=== PATIENT | female | born 1980 | race Caucasian/White ===

== ENCOUNTER 2017-07-01 14:28 | Inpatient (IN) | payer BC ==
[2017-07-01 15:27] VITALS: BMI 39.4
--- NOTE | 2017-07-01 16:35 | HP ---
Admission ROS [facility] Chief Complaint: I WANT TO GO TO REHAB Allergies/Adverse Reactions: Allergies Allergy/AdvReac Type Severity Reaction Status Date / Time penicillin G Allergy Severe Swelling Verified 07/01/17 16:02 History of Present Illness: 36 YEARS OLD FEMALE WITH LONG HISTORY OF COCAINE, NICOTINE DEPENDENCE, HAS ASTHMA AND CHRONIC SWELLING FEET X 5 YEARS, AND DEPRESSION IS ADMITTED TO REHAB Exam Limitations: No Limitations - Ebola screening Have you traveled outside of the country in the last 21 days: No Have you had contact with anyone from an Ebola affected area: No Have you been sick,other than usual withdrawal symptoms: No Do you have a fever: No - Review of Systems Constitutional: Weight Stable EENT: reports: No Symptoms Reported Respiratory: reports: No Symptoms reported Cardiac: reports: No Symptoms Reported GI: reports: No Symptoms Reported : reports: No Symptoms Reported Musculoskeletal: reports: Joint Swelling (ANKLES BILATERALLY) Integumentary: reports: No Symptoms Reported Neuro: reports: No Symptoms reported Endocrine: reports: No Symptoms Reported Hematology: reports: No Symptoms Reported Psychiatric: reports: Judgement Intact, Orientated x3, Anxious, Depressed Other Systems: Reviewed and Negative Patient History - Patient Medical History Hx Anemia: No Hx Asthma: Yes Hx Chronic Obstructive Pulmonary Disease (COPD): No Hx Cancer: No Hx Cardiac Disorders: No Hx Congestive Heart Failure: No Hx Hypertension: No Hx Hypercholesterolemia: No Hx Pacemaker: No HX Cerebrovascular Accident: No Hx Seizures: No Hx Dementia: No Hx Diabetes: No Hx Gastrointestinal Disorders: No Hx Liver Disease: No Hx Genitourinary Disorders: No Hx Sexually Transmitted Disorders: No Hx Renal Disease (ESRD): No Hx Thyroid Disease: No Hx Human Immunodeficiency Virus (HIV): No Hx Hepatitis C: No Hx Depression: Yes Hx Suicide Attempt: Yes (" LONG TIME AGO" ) Hx Bipolar Disorder: No Hx Schizophrenia: No - Patient Surgical History Past Surgical History: Yes Hx Section: Yes (2014) Anesthesia Reaction: No - PPD History Previous Implant?: Yes Documented Results: Negative w/o proof Implanted On Prior [facility] Admission?: No PPD to be Administered?: Yes - Reproductive History Patient is a Female of Child Bearing Age (11 -55 yrs old): Yes Last Menstrual Period: 06/20/17 Patient : No - Smoking Cessation Smoking history: Current every day smoker Have you smoked in the past 12 months: Yes Aproximately how many cigarettes per day: 5 Cigars Per Day: 0 Hx Chewing Tobacco Use: No Initiated information on smoking cessation: Yes 'Breaking Loose' booklet given: 07/01/17 - Substance & Tx. History Hx Alcohol Use: No Hx Substance Use: Yes Substance Use Type: Cocaine Hx Substance Use Treatment: No - Substances Abused Cocaine Route: Smoking Frequency: Daily Amount used: 500$+ Age of first use: 31 Date of Last Use: 06/30/17 Family Disease History - Family Disease History Family Disease History: Other: Father (NO CONTACT), Mother (NO CONTACT), Brother (NO CONTACT) Admission Physical Exam [facility] - Vital Signs Vital Signs: Vital Signs - 24 hr 07/01/17 15:24 Temperature 95.5 F L Pulse Rate 84 Respiratory 20 Rate Blood Pressure 122/64 - Physical General Appearance: Yes: No Apparent Distress, Appropriately Dressed, Obese HEENTM: Yes: Hearing grossly Normal, Normal ENT Inspection, Normocephalic, Normal Voice Respiratory: Yes: Chest Non-Tender, Lungs Clear, Normal Breath Sounds, No Respiratory Distress, No Accessory Muscle Use Neck: Yes: Supple, Trachea in good position Breast: Yes: Breasts Symetrical Cardiology: Yes: Regular Rhythm, Regular Rate, S1, S2 Abdominal: Yes: Normal Bowel Sounds, Non Tender, Soft Genitourinary: Yes: Within Normal Limits Back: Yes: Normal Inspection Musculoskeletal: Yes: full range of Motion, Gait Steady, Joint swelling (ANKLES BOTH) Extremities: Yes: Normal Range of Motion (LIMITED ON BOTH ANKLES DUE TO SWELLING "I WAS USING COCAINE"), Non-Tender, Swelling (FEET) Neurological: Yes: Fully Oriented, Alert, Motor Strength 5/5, Normal Response, Depressed Affect ("I DO NOT WANT TO USE ANYMORE") Integumentary: Yes: Warm Lymphatic: Yes: Within Normal Limits - Diagnostic (1) Cocaine dependence, uncomplicated Current Visit: Yes Status: Acute (2) Asthma Current Visit: Yes Status: Chronic Qualifiers: Asthma severity: mild intermittent Asthma complication type: with status asthmaticus Qualified Code(s): J45.22 - Mild intermittent asthma with status asthmaticus (3) Swelling of first metatarsophalangeal (MTP) joint of both feet Current Visit: Yes Status: Chronic Comment: X 5 YEARS (4) Nicotine dependence Current Visit: Yes Status: Acute Qualifiers: Nicotine product type: cigarettes Substance use status: in withdrawal Qualified Code(s): F17.213 - Nicotine dependence, cigarettes, with withdrawal (5) Depression Current Visit: Yes Status: Suspected Qualifiers: Depression Type: dysthymia Qualified Code(s): F34.1 - Dysthymic disorder Cleared for Admission [facility] - Detox or Rehab [facility] Level of Care: Observation Bed Detox Regimen/Protocol: Not Applicable Claeared for Rehab Admission: Yes [facility] Breath Alcohol Content Breath Alcohol Content: 0 Urine Pregancy Test - Result Urine Test Results: Negative- NO Line Present Urine Drug Screen - Results Drug Screen Negative: No Urine Drug Screen Results: ALLEN-Cocaine
[2017-07-01] MEDS ORDERED: ACETAMINOPHEN 325 MG TABLET (FP) PO PRN (16:38)
[2017-07-01] MEDS ORDERED: MAGNESIUM CITRATE 300 ML BOTTLE PO PRN (16:38)
[2017-07-01] MEDS ORDERED: diphenhydrAMINE HCL 50 MG CAPSULE PO PRN (16:38)
[2017-07-01] MEDS ORDERED: MENTHOL/PHENOL 1 EACH UD MM PRN (16:38)
[2017-07-01] MEDS ORDERED: P-EPHED 60MG/TRIPROLIDI 2.5MG TABLET PO PRN (16:38)
[2017-07-01] MEDS ORDERED: MAGNESIUM HYDROX 2400MG/30ML ORAL SUSPENSION 30 ML CUP PO PRN (16:38)
[2017-07-01] MEDS ORDERED: NICOTINE POLACRILEX 2 MG GUM BUC PRN (16:38)
[2017-07-01] MEDS ORDERED: LOPERAMIDE HCL 2 MG CAPSULE PO PRN (16:38)
[2017-07-01] MEDS ORDERED: IBUPROFEN 400 MG TABLET (FP) PO PRN (16:38)
[2017-07-01] MEDS ORDERED: guaiFENesin/D-METHORPHAN HB 10 ML UNIT-DOSE CUPS PO PRN (16:38)
[2017-07-01] MEDS ORDERED: ALBUTEROL SO4 2.5/IPRATROPIUM 0.5 INH SOL 3 ML VIAL.NEB. NEB PRN (16:39)
[2017-07-01] MEDS ORDERED: ALBUTEROL SO4 6.7 GM HFA INHALER IH PRN (16:39)
[2017-07-01] MEDS ORDERED: TUBERCULIN PPD 5 TU/0.1ML VIAL ID ONE (18:41)
[2017-07-01] MEDS: hydrOXYzine PAMOATE 50 MG CAPSULE (FP) PO PRN (21:32)
[2017-07-01] MEDS: THIAMINE HCL 100 MG TABLET (FP) PO SCH (21:32)
[2017-07-01 22:16] LABS: URINE APPEARANCE CLOUDY; URINE BILIRUBIN NEGATIVE (NEGATIVE); URINE BLOOD NEGATIVE (NEGATIVE); URINE COLOR YELLOW; URINE GLUCOSE (UA) NEGATIVE (NEGATIVE); URINE KETONE 1+ (NEGATIVE); URINE LEUK ESTERASE NEGATIVE (NEGATIVE); URINE NITRITE NEGATIVE (NEGATIVE); URINE PROTEIN NEGATIVE (NEGATIVE); URINE UROBILINOGEN NEGATIVE mg/dL (0.2-1.0)
[2017-07-02] MEDS: hydrOXYzine PAMOATE 50 MG CAPSULE (FP) PO PRN (06:40)
[2017-07-02] MEDS: PRENATAL VITAMINS W/ FOLIC ACID TABLET (FP) PO SCH (10:03)
[2017-07-02] MEDS: NICOTINE 14 MG/24 HOURS TOPICAL PATCH TD SCH (10:04)
[2017-07-02 10:11] LABS: MCH 20.8 pg (25.7-33.7); MEAN CELL VOLUME 69.5 fl (80-96); MEAN PLT VOLUME 9.2 fl (7.5-11.1); RDW 30.3 % (11.6-15.6); WHITE BLOOD COUNT 9.1 K/mm3 (4.0-10.0)
[2017-07-02 10:32] LABS: ALBUMIN 2.7 g/dl (3.4-5.0); ANION GAP 11 (8-16); BILIRUBIN,TOTAL 0.3 mg/dL (0.2-1.0); CALCIUM 8.4 mg/dL (8.5-10.1); CO2 25 mmol/L (21-32); CREATININE 0.8 mg/dL (0.55-1.02); GLUCOSE,RANDOM 91 mg/dL (74-106); SGOT/AST 23 U/L (15-37); SGPT/ALT 20 U/L (12-78)
[2017-07-02 10:35] LABS: ALK PHOS 76 U/L (45-117); TOT PROT 5.7 g/dl (6.4-8.2)
--- NOTE | 2017-07-02 10:50 | HP ---
Psychiatrist Admission - Data Date of interview: 07/02/17 Admission source: [facility] Identifying data: This is the first admission to [address] [place] [address] for this 36 years old H single female mother of 3 (children with the patient's mother).patient is homeless,supported by family. Medical History: Significant for BA. Psychiatric History: Patient reports depressed mood,anxiety,insomnia started about 2 years ago when she was admitted to [facility] due to above problems.Patient was dx with Depression ,placed on medications:Seroquel 100 mg po am and 400 mg po hs,Cymbalta 30 mg po bid,Topamax 200 mg po bid.No history of suicidal attempts,no more psychiatric hospitalizations reported.patient is willing to continue her medications as per plan. Physical/Sexual Abuse/Trauma History: denies Vital Signs: Vital Signs - 24 hr 07/01/17 07/02/17 07/02/17 15:24 00:30 03:30 Temperature 95.5 F L Pulse Rate 84 Respiratory 20 20 20 Rate Blood Pressure 122/64 07/02/17 06:55 Temperature 98.4 F Pulse Rate 78 Respiratory 18 Rate Blood Pressure 101/76 Allergies/Adverse Reactions: Allergies Allergy/AdvReac Type Severity Reaction Status Date / Time penicillin G Allergy Severe Swelling Verified 07/01/17 16:02 Date of last physical exam: 07/01/17 Concur with the findings of this exam: Yes - Substance Abuse/Tx History Hx Alcohol Use: No Hx Substance Use: Yes (reports using cocaine since 31 years old,$500 daily) Substance Use Type: Cocaine Hx Substance Use Treatment: Yes (longest abstinence time about 6-7 months) - Admission Criteria Previous failed treatment: Yes Poor recovery environment: Yes Comorbidities: Yes Lacks judgement: Yes Mental Status Exam - Mental Status Exam Alert and Oriented to: Time, Place, Person Cognitive Function: Grossly Intact Patient Appearance: Unkempt Mood: Sad, Anxious, Irritable Affect: Mood Congruent, Labile Patient Behavior: Restless, Cooperative Speech Pattern: Clear Voice Loudness: Normal Thought Process: Goal Oriented Thought Disorder: Not Present Hallucinations: Denies Suicidal Ideation: Denies Homicidal Ideation: Denies Insight/Judgement: Fair Sleep: Difficulty falling asleep Appetite: Good Muscle strength/Tone: Normal Gait/Station: Normal Psychiatric Findings - Problem List ([place] 1, 2,3) (1) Nicotine dependence Current Visit: Yes Status: Chronic Qualifiers: Nicotine product type: cigarettes Substance use status: in withdrawal Qualified Code(s): F17.213 - Nicotine dependence, cigarettes, with withdrawal (2) Asthma Current Visit: Yes Status: Chronic Qualifiers: Asthma severity: mild intermittent Asthma complication type: with status asthmaticus Qualified Code(s): J45.22 - Mild intermittent asthma with status asthmaticus (3) Cocaine dependence Current Visit: Yes Status: Chronic (4) Substance induced mood disorder Current Visit: Yes Status: Chronic - Initial Treatment Plan Initial Treatment Plan: Continue current medications as per plan. Will monitor progress.
[2017-07-02 11:06] LABS: ANISOCYTOSIS 4+; HYPOCHROMIA 4+; MACROCYTOSIS 1+; MICROCYTOSIS 3+; PLATELET ESTIMATE ADEQUATE (NORMAL); POIKILOCYTOSIS 3+; TEAR DROP CELLS 2+
[2017-07-02 11:07] LABS: OVALOCYTE 1+
[2017-07-02 11:31] LABS: PLATELET COUNT 195 K/MM3 (134-434)
[2017-07-02] MEDS ORDERED: POTASSIUM CHLORIDE TABS 20 MEQ TABLET.ER (FP) PO ONE (12:30)
--- NOTE | 2017-07-02 12:45 | EKG ---
Test Reason : Blood Pressure : / mmHG Vent. Rate : 071 BPM Atrial Rate : 071 BPM P-R Int : 236 ms QRS Dur : 090 ms QT Int : 408 ms P-R-T Axes : 047 076 067 degrees QTc Int : 443 ms SINUS RHYTHM WITH 1ST DEGREE A-V BLOCK OTHERWISE NORMAL ECG NO PREVIOUS ECGS AVAILABLE Confirmed by VIPIN MARTINEZ MD ([id number]) on 07/02/2017 12:44:42 PM Referred By: Confirmed By:VIPIN MARTINEZ MD
[2017-07-02] MEDS: DULoxetine HCL 60 MG CAPSULE.DR PO SCH ×2 (13:45→22:07)
[2017-07-02] MEDS: FERROUS SO4 325 MG TABLET (FP) PO SCH ×2 (13:45→17:30)
[2017-07-02] MEDS: QUEtiapine FUMARATE 100 MG TABLET (FP) PO SCH (13:45)
[2017-07-02] MEDS: TOPIRAMATE 100 MG TABLET PO SCH ×2 (13:46→22:06)
[2017-07-02] MEDS ORDERED: IBUPROFEN 600 MG TABLET (FP) PO PRN (14:47)
[2017-07-02] MEDS ORDERED: ONDANSETRON *ODT* 4 MG TABLET SL PRN (14:54)
[2017-07-02] MEDS ORDERED: ONDANSETRON *ODT* 4 MG TABLET SL ONE (15:15)
[2017-07-02] MEDS: CYCLOBENZAPRINE HCL 10 MG TABLET (FP) PO SCH ×2 (15:44→22:06)
[2017-07-02] MEDS: LIDOCAINE 5% TOPICAL PATCH TP SCH (15:45)
[2017-07-02] MEDS ORDERED: POTASSIUM CHLORIDE ORAL LIQUID 20 MEQ/15 ML PO ONE (16:00)
[2017-07-02] MEDS: POTASSIUM CHLORIDE ORAL LIQUID 20 MEQ/15 ML PO SCH (22:06)
[2017-07-02] MEDS: QUEtiapine FUMARATE 400 MG TABLET PO SCH (22:06)
[2017-07-02] MEDS: LIDOCAINE PATCH REMOVAL MC SCH (22:08)
[2017-07-02] MEDS: THIAMINE HCL 100 MG TABLET (FP) PO SCH (22:09)
[2017-07-03] MEDS: CYCLOBENZAPRINE HCL 10 MG TABLET (FP) PO SCH ×3 (06:13→21:19)
[2017-07-03] MEDS: FERROUS SO4 325 MG TABLET (FP) PO SCH ×3 (07:28→17:34)
[2017-07-03] MEDS: POTASSIUM CHLORIDE ORAL LIQUID 20 MEQ/15 ML PO SCH ×2 (10:02→21:20)
[2017-07-03] MEDS: PRENATAL VITAMINS W/ FOLIC ACID TABLET (FP) PO SCH (10:02)
[2017-07-03] MEDS: QUEtiapine FUMARATE 100 MG TABLET (FP) PO SCH (10:02)
[2017-07-03] MEDS: TOPIRAMATE 100 MG TABLET PO SCH ×2 (10:03→21:19)
[2017-07-03] MEDS: DULoxetine HCL 60 MG CAPSULE.DR PO SCH ×2 (10:08→21:19)
[2017-07-03] MEDS: NICOTINE 14 MG/24 HOURS TOPICAL PATCH TD SCH (10:09)
[2017-07-03] MEDS: LIDOCAINE 5% TOPICAL PATCH TP SCH (10:09)
[2017-07-03] MEDS: QUEtiapine FUMARATE 400 MG TABLET PO SCH (21:18)
[2017-07-03] MEDS: THIAMINE HCL 100 MG TABLET (FP) PO SCH (21:18)
[2017-07-03] MEDS: LIDOCAINE PATCH REMOVAL MC SCH (21:20)
[2017-07-04] MEDS: CYCLOBENZAPRINE HCL 10 MG TABLET (FP) PO SCH ×3 (07:05→21:35)
[2017-07-04] MEDS: FERROUS SO4 325 MG TABLET (FP) PO SCH ×3 (08:49→17:09)
[2017-07-04] MEDS: DULoxetine HCL 60 MG CAPSULE.DR PO SCH ×2 (10:10→21:35)
[2017-07-04 10:27] LABS: EOSINOPHIL 4.3 % (0-4.5); MCH 20.8 pg (25.7-33.7); MCHC 29.9 g/dl (32.0-36.0); MEAN CELL VOLUME 69.5 fl (80-96); MEAN PLT VOLUME 9.3 fl (7.5-11.1); NEUTROPHILS 59.4 % (42.8-82.8); PLATELET COUNT 224 K/MM3 (134-434); RDW 28.9 % (11.6-15.6); WHITE BLOOD COUNT 8.3 K/mm3 (4.0-10.0)
[2017-07-04] MEDS: POTASSIUM CHLORIDE ORAL LIQUID 20 MEQ/15 ML PO SCH ×2 (10:49→21:35)
[2017-07-04] MEDS: QUEtiapine FUMARATE 100 MG TABLET (FP) PO SCH (10:49)
[2017-07-04] MEDS: TOPIRAMATE 100 MG TABLET PO SCH ×2 (10:49→21:35)
[2017-07-04] MEDS: PRENATAL VITAMINS W/ FOLIC ACID TABLET (FP) PO SCH (10:49)
[2017-07-04] MEDS: LIDOCAINE 5% TOPICAL PATCH TP SCH (10:50)
[2017-07-04] MEDS: NICOTINE 14 MG/24 HOURS TOPICAL PATCH TD SCH (10:50)
[2017-07-04 10:52] LABS: ANION GAP 6 (8-16); CALCIUM 8.7 mg/dL (8.5-10.1); CO2 26 mmol/L (21-32); CREATININE 0.8 mg/dL (0.55-1.02); GLUCOSE,RANDOM 66 mg/dL (74-106)
[2017-07-04] MEDS: THIAMINE HCL 100 MG TABLET (FP) PO SCH (21:35)
[2017-07-04] MEDS: QUEtiapine FUMARATE 400 MG TABLET PO SCH (21:35)
[2017-07-04] MEDS: LIDOCAINE PATCH REMOVAL MC SCH (21:37)
[2017-07-05] MEDS: CYCLOBENZAPRINE HCL 10 MG TABLET (FP) PO SCH ×3 (06:21→21:01)
[2017-07-05] MEDS: FERROUS SO4 325 MG TABLET (FP) PO SCH ×3 (07:21→17:27)
[2017-07-05] MEDS: QUEtiapine FUMARATE 100 MG TABLET (FP) PO SCH (10:42)
[2017-07-05] MEDS: LIDOCAINE 5% TOPICAL PATCH TP SCH (10:42)
[2017-07-05] MEDS: DULoxetine HCL 60 MG CAPSULE.DR PO SCH ×2 (10:42→21:02)
[2017-07-05] MEDS: TOPIRAMATE 100 MG TABLET PO SCH ×2 (10:42→21:01)
[2017-07-05] MEDS: POTASSIUM CHLORIDE ORAL LIQUID 20 MEQ/15 ML PO SCH ×2 (10:42→21:01)
[2017-07-05] MEDS: PRENATAL VITAMINS W/ FOLIC ACID TABLET (FP) PO SCH (10:42)
[2017-07-05] MEDS: NICOTINE 14 MG/24 HOURS TOPICAL PATCH TD SCH (10:43)
[2017-07-05] MEDS: THIAMINE HCL 100 MG TABLET (FP) PO SCH (21:01)
[2017-07-05] MEDS: QUEtiapine FUMARATE 400 MG TABLET PO SCH (21:02)
[2017-07-05] MEDS: LIDOCAINE PATCH REMOVAL MC SCH (21:18)
[2017-07-06] MEDS: CYCLOBENZAPRINE HCL 10 MG TABLET (FP) PO SCH ×3 (06:16→21:07)
[2017-07-06] MEDS: FERROUS SO4 325 MG TABLET (FP) PO SCH ×4 (07:27→17:01)
[2017-07-06] MEDS: QUEtiapine FUMARATE 100 MG TABLET (FP) PO SCH (09:59)
[2017-07-06] MEDS: TOPIRAMATE 100 MG TABLET PO SCH ×2 (09:59→21:07)
[2017-07-06] MEDS: NICOTINE 14 MG/24 HOURS TOPICAL PATCH TD SCH (09:59)
[2017-07-06] MEDS: DULoxetine HCL 60 MG CAPSULE.DR PO SCH ×2 (09:59→21:07)
[2017-07-06] MEDS: POTASSIUM CHLORIDE ORAL LIQUID 20 MEQ/15 ML PO SCH ×2 (09:59→21:09)
[2017-07-06] MEDS: PRENATAL VITAMINS W/ FOLIC ACID TABLET (FP) PO SCH (09:59)
[2017-07-06] MEDS: LIDOCAINE 5% TOPICAL PATCH TP SCH (10:00)
[2017-07-06] MEDS ORDERED: SENNOSIDES 8.6MG TABLET (FP) PO ONE (19:28)
[2017-07-06] MEDS ORDERED: SENNOSIDES 8.6MG TABLET (FP) PO PRN (19:28)
[2017-07-06] MEDS: SENNOSIDES 8.6MG TABLET (FP) PO SCH (21:07)
[2017-07-06] MEDS: QUEtiapine FUMARATE 400 MG TABLET PO SCH (21:07)
[2017-07-06] MEDS: THIAMINE HCL 100 MG TABLET (FP) PO SCH (21:07)
[2017-07-06] MEDS: LIDOCAINE PATCH REMOVAL MC SCH (21:08)
[2017-07-07] MEDS: CYCLOBENZAPRINE HCL 10 MG TABLET (FP) PO SCH ×3 (06:33→21:14)
[2017-07-07] MEDS: FERROUS SO4 325 MG TABLET (FP) PO SCH ×3 (07:22→16:57)
[2017-07-07] MEDS: SENNOSIDES 8.6MG TABLET (FP) PO SCH ×2 (09:46→21:14)
[2017-07-07] MEDS: PRENATAL VITAMINS W/ FOLIC ACID TABLET (FP) PO SCH (09:46)
[2017-07-07] MEDS: POTASSIUM CHLORIDE ORAL LIQUID 20 MEQ/15 ML PO SCH ×2 (09:46→21:14)
[2017-07-07] MEDS: DULoxetine HCL 60 MG CAPSULE.DR PO SCH ×2 (09:46→21:14)
[2017-07-07] MEDS: QUEtiapine FUMARATE 100 MG TABLET (FP) PO SCH (09:46)
[2017-07-07] MEDS: LIDOCAINE 5% TOPICAL PATCH TP SCH (09:46)
[2017-07-07] MEDS: NICOTINE 14 MG/24 HOURS TOPICAL PATCH TD SCH (09:46)
[2017-07-07] MEDS: TOPIRAMATE 100 MG TABLET PO SCH ×2 (09:46→21:15)
[2017-07-07] MEDS: LIDOCAINE PATCH REMOVAL MC SCH (21:14)
[2017-07-07] MEDS: THIAMINE HCL 100 MG TABLET (FP) PO SCH (21:15)
[2017-07-07] MEDS: QUEtiapine FUMARATE 400 MG TABLET PO SCH (21:15)
[2017-07-08] MEDS: CYCLOBENZAPRINE HCL 10 MG TABLET (FP) PO SCH ×3 (06:24→21:10)
[2017-07-08] MEDS: FERROUS SO4 325 MG TABLET (FP) PO SCH ×2 (07:05→11:42)
[2017-07-08] MEDS: LIDOCAINE 5% TOPICAL PATCH TP SCH (11:21)
[2017-07-08] MEDS: DULoxetine HCL 60 MG CAPSULE.DR PO SCH ×2 (11:21→21:10)
[2017-07-08] MEDS: POTASSIUM CHLORIDE ORAL LIQUID 20 MEQ/15 ML PO SCH ×2 (11:22→21:09)
[2017-07-08] MEDS: SENNOSIDES 8.6MG TABLET (FP) PO SCH ×2 (11:22→21:09)
[2017-07-08] MEDS: NICOTINE 14 MG/24 HOURS TOPICAL PATCH TD SCH (11:22)
[2017-07-08] MEDS: QUEtiapine FUMARATE 100 MG TABLET (FP) PO SCH (11:22)
[2017-07-08] MEDS: PRENATAL VITAMINS W/ FOLIC ACID TABLET (FP) PO SCH (11:22)
[2017-07-08] MEDS: TOPIRAMATE 100 MG TABLET PO SCH ×2 (11:22→21:10)
[2017-07-08] MEDS ORDERED: DOCUSATE SODIUM 100 MG CAPSULE (FP) PO ONE (13:30)
[2017-07-08] MEDS ORDERED: LACTULOSE 20 GM/30 ML UDC (FOR ORAL USE ONLY) PO ONE (13:30)
[2017-07-08] MEDS: DOCUSATE SODIUM 100 MG CAPSULE (FP) PO SCH (21:09)
[2017-07-08] MEDS: THIAMINE HCL 100 MG TABLET (FP) PO SCH (21:09)
[2017-07-08] MEDS: QUEtiapine FUMARATE 400 MG TABLET PO SCH (21:09)
[2017-07-08] MEDS: LIDOCAINE PATCH REMOVAL MC SCH (21:12)
[2017-07-08 23:14] LABS: PH,URINE 5.5 (4.5-8); URINE APPEARANCE CLEAR; URINE BILIRUBIN NEGATIVE (NEGATIVE); URINE BLOOD NEGATIVE (NEGATIVE); URINE COLOR YELLOW; URINE GLUCOSE (UA) NEGATIVE (NEGATIVE); URINE KETONE NEGATIVE (NEGATIVE); URINE LEUK ESTERASE NEGATIVE (NEGATIVE); URINE NITRITE NEGATIVE (NEGATIVE); URINE PROTEIN NEGATIVE (NEGATIVE); URINE UROBILINOGEN 0.2 (0.2-1.0)
[2017-07-09] MEDS: CYCLOBENZAPRINE HCL 10 MG TABLET (FP) PO SCH ×3 (06:19→21:08)
[2017-07-09 09:49] LABS: BASOPHIL 0.8 % (0-2.0); EOSINOPHIL 6.1 % (0-4.5); MCH 20.8 pg (25.7-33.7); MCHC 30.1 g/dl (32.0-36.0); MEAN CELL VOLUME 68.9 fl (80-96); MEAN PLT VOLUME 9.4 fl (7.5-11.1); PLATELET COUNT 213 K/MM3 (134-434); RDW 28.7 % (11.6-15.6); WHITE BLOOD COUNT 7.5 K/mm3 (4.0-10.0)
[2017-07-09] MEDS: SENNOSIDES 8.6MG TABLET (FP) PO SCH ×2 (10:27→21:07)
[2017-07-09] MEDS: QUEtiapine FUMARATE 100 MG TABLET (FP) PO SCH (10:27)
[2017-07-09] MEDS: DULoxetine HCL 60 MG CAPSULE.DR PO SCH ×2 (10:27→21:07)
[2017-07-09] MEDS: TOPIRAMATE 100 MG TABLET PO SCH ×2 (10:27→21:07)
[2017-07-09] MEDS: PRENATAL VITAMINS W/ FOLIC ACID TABLET (FP) PO SCH (10:27)
[2017-07-09] MEDS: LIDOCAINE 5% TOPICAL PATCH TP SCH (10:28)
[2017-07-09] MEDS: NICOTINE 14 MG/24 HOURS TOPICAL PATCH TD SCH (10:28)
[2017-07-09 10:55] LABS: ALK PHOS 220 U/L (45-117); ANION GAP 10 (8-16); BILIRUBIN,TOTAL 0.5 mg/dL (0.2-1.0); CO2 24 mmol/L (21-32); CREATININE 0.9 mg/dL (0.55-1.02); GLUCOSE,RANDOM 70 mg/dL (74-106); SGOT/AST 121 U/L (15-37); SGPT/ALT 290 U/L (12-78); TOT PROT 7.1 g/dl (6.4-8.2)
--- NOTE | 2017-07-09 11:15 | PN ---
Psychiatric Progress Note Vital Signs: Vital Signs Period Temp Pulse Resp BP Sys/Maldonaod Pulse Ox Last 24 Hr 97.6 F 83 18-18 108/80 Date of Session: 07/09/17 Chief Complaint:: Dry mouth HPI: Patient addressing Cocaine Dependence comorbid with Nicotine Dependence and Substance-Induced Mood Disorder ROS: Asthma Current Medications: Active Medications Generic Name Dose Route Start Last Admin Trade Name Freq PRN Reason Stop Dose Admin Acetaminophen 650 mg 07/01/17 16:38 Tylenol - PO Q4H PRN PAIN Al Hydroxide/Mg Hydroxide 30 ml 07/01/17 16:38 Mylanta Oral Suspension - PO Q6H PRN DYSPEPSIA Albuterol Sulfate 2 puff 07/01/17 16:39 Ventolin Hfa Inhaler - IH Q4H PRN SHORT OF BREATH/WHEEZING Cyclobenzaprine HCl 10 mg 07/02/17 15:00 07/09/17 06:19 Flexeril - PO 10 mg TID CHARLEEN Administration Diphenhydramine HCl 50 mg 07/01/17 16:38 Benadryl - PO HSMR1 PRN INSOMNIA Docusate Sodium 300 mg 07/08/17 22:00 07/08/17 21:09 Colace - PO 300 mg HS CHARLENE Administration Duloxetine HCl 60 mg 07/02/17 12:30 07/09/17 10:27 Cymbalta - PO 60 mg BID CHARLENE Administration Eucalyptus/Menthol/Phenol/Sorbitol 1 each 07/01/17 16:38 Cepastat Lozenge - MM Q4H PRN SORE THROAT Guaifenesin 10 ml 07/01/17 16:38 Robitussin Dm - PO Q6H PRN COUGH Hydroxyzine Pamoate 50 mg 07/01/17 16:38 07/02/17 06:40 Vistaril - PO 50 mg Q4H PRN Administration AGITATION Ibuprofen 600 mg 07/02/17 14:47 07/06/17 14:56 Motrin - PO 600 mg Q6H PRN Administration SEVERE PAIN Lidocaine 1 patch 07/02/17 15:00 07/09/17 10:28 Lidoderm Patch - TP Not Given DAILY CHRALENE Loperamide HCl 4 mg 07/01/17 16:38 Imodium - PO Q6H PRN DIARRHEA Magnesium Citrate 300 ml 07/01/17 16:38 07/06/17 06:19 Citroma - PO 300 ml Q48H PRN Administration CONSTIPATION Magnesium Hydroxide 30 ml 07/01/17 16:38 07/05/17 21:17 Milk Of Magnesia - PO 30 ml DAILY PRN Administration CONSTIPATION Miscellaneous 1 each 07/02/17 22:00 07/08/17 21:12 Lidoderm Patch Removal MC 1 each DAILY@2200 CHARLENE Administration Nicotine 14 mg 07/02/17 10:00 07/09/17 10:28 Nicoderm Patch - TD Not Given DAILY CHARLENE Nicotine Polacrilex 2 mg 07/01/17 16:38 Nicorette Gum - BUC Q2H PRN NICOTINE REPLACEMENT RX Ondansetron HCl 8 mg 07/02/17 14:54 07/07/17 12:26 Zofran Odt - SL 8 mg Q8H PRN Administration NAUSEA AND/OR VOMITING Potassium Chloride 20 meq 07/02/17 22:00 07/08/17 21:09 Potassium Chloride Oral Liquid PO 20 meq BID CHARLENE Administration Multivit/Folic Acid/Iron 1 tab 07/02/17 10:00 07/09/17 10:27 Vitamins ([facility]) - PO 1 tab DAILY CHARLENE Administration Pseudoephedrine/Triprolidine 1 combo 07/01/17 16:38 Actifed - PO TID PRN NASAL CONGESTION Quetiapine Fumarate 400 mg 07/02/17 22:00 07/08/17 21:09 Seroquel - PO 400 mg HS CHARLENE Administration Senna 2 tab 07/06/17 19:28 Senna - PO HS PRN CONSTIPATION Senna 1 tab 07/06/17 22:00 07/09/17 10:27 Senna - PO 1 tab BID CHARLENE Administration Thiamine HCl 100 mg 07/01/17 22:00 07/08/17 21:09 Vitamin B1 - PO 100 mg HS CHARLENE Administration Topiramate 200 mg 07/02/17 12:30 07/09/17 10:27 Topamax - PO 200 mg BID CHARLENE Administration Medication(s) Change(s): Discontinue Seroquel 100 mg po daily Current Side Effect: No Lab tests ordered: Yes Lab tests reviewed: Yes Provider note:: Patient reports experiencing dry mouth. She said that she was told by the medical doctor that the problem is related to her psychiatric medications. She is currently on Seroquel 100 mg daily & 400 mg HS, Cymbalta 60 mg daily and Topiramate. She was explained by Seroquel is most likely responsible for her dry mouth. She told global technical writer that she wants to stop only the morning dose since she is helped by the night dose to sleep well Total face to face time:: 25 Mental Status Exam - Mental Status Exam Alert and Oriented to: Time, Place, Person Cognitive Function: Fair Patient Appearance: Well Groomed Mood: Hopeful, Euthymic Affect: Appropriate Patient Behavior: Cooperative Speech Pattern: Clear Voice Loudness: Normal Thought Process: Intact, Goal Oriented Thought Disorder: Not Present Hallucinations: Denies Suicidal Ideation: Denies Homicidal Ideation: Denies Insight/Judgement: Fair Sleep: Fair Appetite: Good Muscle strength/Tone: Normal Gait/Station: Normal Psychiatric Treatment Plan - Problem List (1) Cocaine dependence Current Visit: Yes (2) Nicotine dependence Current Visit: Yes Qualifiers: Nicotine product type: cigarettes Substance use status: in withdrawal Qualified Code(s): F17.213 - Nicotine dependence, cigarettes, with withdrawal (3) Substance induced mood disorder Current Visit: Yes (4) Asthma Current Visit: Yes Qualifiers: Asthma severity: mild intermittent Asthma complication type: with status asthmaticus Qualified Code(s): J45.22 - Mild intermittent asthma with status asthmaticus Initial treatment plan: 1) Discontinue Seroquel 100 mg po daily. 2) Monitor progress
[2017-07-09 12:41] LABS: ANISOCYTOSIS 3+; HYPOCHROMIA 3+; MACROCYTOSIS 1+; MICROCYTOSIS 1+; TEAR DROP CELLS FEW
[2017-07-09] MEDS: POTASSIUM CHLORIDE ORAL LIQUID 20 MEQ/15 ML PO SCH ×2 (13:53→21:09)
[2017-07-09] MEDS: THIAMINE HCL 100 MG TABLET (FP) PO SCH (21:06)
[2017-07-09] MEDS: QUEtiapine FUMARATE 400 MG TABLET PO SCH (21:07)
[2017-07-09] MEDS: DOCUSATE SODIUM 100 MG CAPSULE (FP) PO SCH (21:07)
[2017-07-09] MEDS: LIDOCAINE PATCH REMOVAL MC SCH (21:08)
[2017-07-10 04:34] LABS: FERRITIN 26.097 ng/ml (6.9-282.5)
[2017-07-10 06:06] LABS: SERUM IRON 17 ug/dL (27-159); TOTAL IRON BINDING CAPACITY 385 ug/dL (250-450); UIBC 368 ug/dL (131-425)
[2017-07-10] MEDS: CYCLOBENZAPRINE HCL 10 MG TABLET (FP) PO SCH ×3 (06:20→21:12)
[2017-07-10] MEDS: TOPIRAMATE 100 MG TABLET PO SCH ×2 (09:46→21:12)
[2017-07-10] MEDS: PRENATAL VITAMINS W/ FOLIC ACID TABLET (FP) PO SCH (09:47)
[2017-07-10] MEDS: SENNOSIDES 8.6MG TABLET (FP) PO SCH ×2 (09:47→21:12)
[2017-07-10] MEDS: DULoxetine HCL 60 MG CAPSULE.DR PO SCH ×2 (09:47→21:11)
[2017-07-10] MEDS: POTASSIUM CHLORIDE ORAL LIQUID 20 MEQ/15 ML PO SCH ×2 (09:48→21:15)
[2017-07-10] MEDS: NICOTINE 14 MG/24 HOURS TOPICAL PATCH TD SCH (09:48)
[2017-07-10] MEDS: LIDOCAINE 5% TOPICAL PATCH TP SCH (09:48)
[2017-07-10] MEDS: hydrOXYzine PAMOATE 50 MG CAPSULE (FP) PO PRN (17:38)
[2017-07-10] MEDS: QUEtiapine FUMARATE 400 MG TABLET PO SCH (21:11)
[2017-07-10] MEDS: DOCUSATE SODIUM 100 MG CAPSULE (FP) PO SCH (21:11)
[2017-07-10] MEDS: THIAMINE HCL 100 MG TABLET (FP) PO SCH (21:12)
[2017-07-10] MEDS: LIDOCAINE PATCH REMOVAL MC SCH (21:15)
[2017-07-11] MEDS: CYCLOBENZAPRINE HCL 10 MG TABLET (FP) PO SCH ×3 (06:03→21:23)
[2017-07-11] MEDS: PRENATAL VITAMINS W/ FOLIC ACID TABLET (FP) PO SCH (09:41)
[2017-07-11] MEDS: SENNOSIDES 8.6MG TABLET (FP) PO SCH ×2 (09:41→21:22)
[2017-07-11] MEDS: DULoxetine HCL 60 MG CAPSULE.DR PO SCH ×2 (09:41→21:23)
[2017-07-11] MEDS: TOPIRAMATE 100 MG TABLET PO SCH ×2 (09:41→21:23)
[2017-07-11] MEDS: POTASSIUM CHLORIDE ORAL LIQUID 20 MEQ/15 ML PO SCH ×2 (09:43→21:25)
[2017-07-11] MEDS: NICOTINE 14 MG/24 HOURS TOPICAL PATCH TD SCH (10:17)
[2017-07-11] MEDS: LIDOCAINE 5% TOPICAL PATCH TP SCH (10:17)
--- NOTE | 2017-07-11 12:40 | PN ---
[facility] Progress Note Note: Laboratory Last Values WBC 7.5 K/mm3 (4.0-10.0) 07/09/17 07:00 RBC 4.85 M/mm3 (3.60-5.2) 07/09/17 07:00 Hgb 10.1 GM/dL (10.7-15.3) L 07/09/17 07:00 Hct 33.4 % (32.4-45.2) 07/09/17 07:00 MCV 68.9 fl (80-96) L 07/09/17 07:00 MCH 20.8 pg (25.7-33.7) L 07/09/17 07:00 MCHC 30.1 g/dl (32.0-36.0) L 07/09/17 07:00 RDW 28.7 % (11.6-15.6) H 07/09/17 07:00 Plt Count 213 K/MM3 (134-434) 07/09/17 07:00 MPV 9.4 fl (7.5-11.1) 07/09/17 07:00 Neutrophils % 59.0 % (42.8-82.8) 07/09/17 07:00 Lymphocytes % 20.5 % (8-40) D 07/09/17 07:00 Monocytes % 13.6 % (3.8-10.2) H D 07/09/17 07:00 Eosinophils % 6.1 % (0-4.5) H 07/09/17 07:00 Basophils % 0.8 % (0-2.0) 07/09/17 07:00 Hypochromia 3+ 07/09/17 07:00 Platelet Estimate Adequate (NORMAL) 07/02/17 07:00 Poikilocytosis 3+ 07/02/17 07:00 Anisocytosis 3+ 07/09/17 07:00 Microcytosis 1+ 07/09/17 07:00 Macrocytosis 1+ 07/09/17 07:00 Tear Drop Cells Few 07/09/17 07:00 Ovalocytes 1+ 07/02/17 07:00 Fragmented RBCs 2+ 07/02/17 07:00 Sodium 141 mmol/L (136-145) 07/09/17 07:00 Potassium 4.1 mmol/L (3.5-5.1) 07/09/17 07:00 Chloride 107 mmol/L (98-107) 07/09/17 07:00 Carbon Dioxide 24 mmol/L (21-32) 07/09/17 07:00 Anion Gap 10 (8-16) 07/09/17 07:00 BUN 14 mg/dL (7-18) 07/09/17 07:00 Creatinine 0.9 mg/dL (0.55-1.02) 07/09/17 07:00 Creat Clearance w eGFR > 60 (>60) 07/09/17 07:00 Random Glucose 70 mg/dL (74-106) L 07/09/17 07:00 Calcium 9.0 mg/dL (8.5-10.1) 07/09/17 07:00 Iron 17 ug/dL (27-159) L 07/09/17 07:00 TIBC 385 ug/dL (250-450) 07/09/17 07:00 Iron Saturation 4 % (15-55) L 07/09/17 07:00 Ferritin 26.097 ng/ml (6.9-282.5) 07/09/17 07:00 Total Bilirubin 0.5 mg/dL (0.2-1.0) D 07/09/17 07:00 AST 121 U/L (15-37) H D 07/09/17 07:00 ALT 290 U/L (12-78) H D 07/09/17 07:00 Alkaline Phosphatase 220 U/L (45-117) H D 07/09/17 07:00 Total Protein 7.1 g/dl (6.4-8.2) D 07/09/17 07:00 Albumin 3.0 g/dl (3.4-5.0) L 07/09/17 07:00 Urine Color Yellow 07/08/17 17:52 Urine Appearance Clear 07/08/17 17:52 Urine pH 5.5 (4.5-8) 07/08/17 17:52 Ur Specific [place] 1.015 (1.005-1.025) 07/08/17 17:52 Urine Protein Negative (NEGATIVE) 07/08/17 17:52 Urine Glucose (UA) Negative (NEGATIVE) 07/08/17 17:52 Urine Ketones Negative (NEGATIVE) 07/08/17 17:52 Urine Blood Negative (NEGATIVE) 07/08/17 17:52 Urine Nitrite Negative (NEGATIVE) 07/08/17 17:52 Urine Bilirubin Negative (NEGATIVE) 07/08/17 17:52 Urine Urobilinogen 0.2 (0.2-1.0) 07/08/17 17:52 Ur Leukocyte Esterase Negative (NEGATIVE) 07/08/17 17:52 RPR Titer Nonreactive (NONREACTIVE) 07/02/17 07:00 Hepatitis C Antibody <0.1 s/co ratio (0.0-0.9) 07/01/17 07:00 d/c tylenol due to elvation of ast,alt d/c k k is 4.1 anemia ferrous sulfate 325 mgs po bid for iron deficiency anemia repeat cbc,cmp,inr on fri07/14/17
[2017-07-11] MEDS: MAG HYDROX/AL HYDROX/SIMETH 30 ML UNIT-DOSE CUP PO PRN (14:49)
[2017-07-11] MEDS: FERROUS SO4 325 MG TABLET (FP) PO SCH (16:52)
[2017-07-11] MEDS: DOCUSATE SODIUM 100 MG CAPSULE (FP) PO SCH (21:22)
[2017-07-11] MEDS: THIAMINE HCL 100 MG TABLET (FP) PO SCH (21:22)
[2017-07-11] MEDS: QUEtiapine FUMARATE 400 MG TABLET PO SCH (21:23)
[2017-07-11] MEDS: hydrOXYzine PAMOATE 50 MG CAPSULE (FP) PO PRN (21:23)
[2017-07-11] MEDS: LIDOCAINE PATCH REMOVAL MC SCH (21:24)
[2017-07-12] MEDS: MAG HYDROX/AL HYDROX/SIMETH 30 ML UNIT-DOSE CUP PO PRN (04:52)
[2017-07-12] MEDS: CYCLOBENZAPRINE HCL 10 MG TABLET (FP) PO SCH ×2 (06:19→14:06)
[2017-07-12] MEDS: FERROUS SO4 325 MG TABLET (FP) PO SCH (07:11)
[2017-07-12 07:22] VITALS: BP 129/86; PULSE 71; TEMP 98.6
[2017-07-12] MEDS: DULoxetine HCL 60 MG CAPSULE.DR PO SCH (09:36)
[2017-07-12] MEDS: TOPIRAMATE 100 MG TABLET PO SCH (09:36)
[2017-07-12] MEDS: PRENATAL VITAMINS W/ FOLIC ACID TABLET (FP) PO SCH (09:36)
[2017-07-12] MEDS: POTASSIUM CHLORIDE ORAL LIQUID 20 MEQ/15 ML PO SCH (09:37)
[2017-07-12] MEDS: NICOTINE 14 MG/24 HOURS TOPICAL PATCH TD SCH (09:37)
[2017-07-12] MEDS: LIDOCAINE 5% TOPICAL PATCH TP SCH (09:37)
[2017-07-12] MEDS: SENNOSIDES 8.6MG TABLET (FP) PO SCH (09:37)
--- NOTE | 2017-07-12 15:23 | PN ---
S Progress Note Note: Psychiatry Attending's note : RN Halie Jameson called. Patient eloped from unit. See staff's notes for details.
--- NOTE | 2017-07-12 17:19 | PN ---
[facility] Progress Note Note: Psychiatry Attending's note (personnel technician) : Received report that the patient has returned to [facility]. According to staff,patient requested to get back to [facility]. Case discussed with Can Dragger on duty,RN Joy Newton. Medical Lead recommended that the patient return to [facility] for re-assessment. Search and urine toxicology pending psychiatric re-evaluation. Medical Lead called [facility] to inquire about the patient : she left. Case discussed with Chief psychiatrist,Dr Zarco. Discussed via telephone with Dr Cardona,attending psychiatrist ([facility]). Ms Senior left without scripts.
== END 2017-07-12 15:17 | disposition left against medical advice (07) | DRG 770 ==
LOC: YASAS 14:28 → Y3E 16:23 → Y3W 19:12
PROVIDERS: ADMIT Psychiatry & Neurology Psychiatry; ATTEND Psychiatry & Neurology Psychiatry
PROC: HZ42ZZZ Group Counseling for Substance Abuse Treatment, Cognitive-Behavioral (ICD-10-PCS; principal; 2017-07-01)
DX: F17.213 Nicotine dependence, cigarettes, with withdrawal (principal); F19.24 Other psychoactive substance dependence with psychoactive substance-induced mood disorder; F34.1 Dysthymic disorder; D64.9 Anemia, unspecified; R74.0 Nonspecific elevation of levels of transaminase and lactic acid dehydrogenase [LDH]; J45.22 Mild intermittent asthma with status asthmaticus; R22.43 Localized swelling, mass and lump, lower limb, bilateral; E66.9 Obesity, unspecified; Z68.39 Body mass index [BMI] 39.0-39.9, adult; Z91.5 Personal history of self-harm; Z59.0 Homelessness
CPT/HCPCS: 36415; 80048; 80053; 81003; 82728; 83540; 83550; 85025; 85027; 86593; 86803; 93005; 93010

== ENCOUNTER 2018-07-10 12:38 | Inpatient (IN) | payer OTHER ==
[2018-07-10 14:52] VITALS: BMI 36.7
--- NOTE | 2018-07-10 16:19 | HP ---
Admission ROS [facility] Chief Complaint: Patient is here to be admitted to rehab for crack/cocaine. First use at 27 years old, using 20 "dime bags" a day, last use was yesterday morning. Denies use of any other substances other than tobacco, 1ppd. History of bipolar and depression. Seroquel 400mg BID, Celexa 30mg QD, Gabapentin 300mg QAM, 600mg QPM. Keppra 500mg BID for seizure disorder. Lost took any medication 2 months ago. Most recently at [facility] for 6 months. Undomiciled. [facility] for 9 months several years ago. No S/I, H/I 3 kids, with her mother. High school graduate. Allergies/Adverse Reactions: Allergies Allergy/AdvReac Type Severity Reaction Status Date / Time penicillin G Allergy Severe Swelling Verified 07/10/18 15:29 - Ebola screening Have you been sick,other than usual withdrawal symptoms: No Patient History - Patient Medical History Hx Anemia: No Hx Asthma: Yes (ON MDI) Hx Chronic Obstructive Pulmonary Disease (COPD): No Hx Cancer: No Hx Cardiac Disorders: No Hx Congestive Heart Failure: No Hx Hypertension: No Hx Hypercholesterolemia: No Hx Pacemaker: No HX Cerebrovascular Accident: No Hx Seizures: Yes (Supposed to be on Keppra) Hx Dementia: No Hx Diabetes: No Hx Gastrointestinal Disorders: No Hx Liver Disease: No Hx Genitourinary Disorders: No Hx Sexually Transmitted Disorders: No Hx Renal Disease (ESRD): No Hx Thyroid Disease: No Hx Human Immunodeficiency Virus (HIV): No Hx Hepatitis C: No Hx Depression: Yes Hx Suicide Attempt: No Hx Bipolar Disorder: No Hx Schizophrenia: No - Patient Surgical History Past Surgical History: Yes Hx Section: Yes (2014) Anesthesia Reaction: No - PPD History Date: 07/03/17 - Reproductive History Last Menstrual Period: 06/20/17 - Smoking Cessation Smoking history: Current every day smoker Have you smoked in the past 12 months: Yes Aproximately how many cigarettes per day: 5 Cigars Per Day: 0 Hx Chewing Tobacco Use: No Initiated information on smoking cessation: Yes 'Breaking Loose' booklet given: 07/10/18 - Substances Abused Crack Route: Smoking Frequency: Daily Amount used: $200 Age of first use: 27 Date of Last Use: 07/09/18 Family Disease History - Family Disease History Family Disease History: Other: Father (NO CONTACT), Mother (NO CONTACT), Brother (NO CONTACT) Admission Physical Exam [facility] - Vital Signs Vital Signs: Vital Signs - 24 hr 07/10/18 14:48 Temperature 97.2 F L Pulse Rate 84 Respiratory 18 Rate Blood Pressure 113/71 [facility] Breath Alcohol Content Breath Alcohol Content: 0 Urine Pregancy Test - Result Urine Test Results: Negative- NO Line Present Urine Drug Screen - Results Drug Screen Negative: No Urine Drug Screen Results: ALLEN-Cocaine, BZO-Benzodiazepines Inpatient Rehab Admission - Initial Determination Are CD services needed?: Yes Free of communicable disease: Yes Not in need of hospitalization: No - Rehab Admission Criteria Previous failed treatment: Yes Poor recovery environment: Yes Comorbidities: Yes Lacks judgement: Yes Patient is meeting Inpatient Rehab admission criteria:: Yes (Previous treatment at [facility] and [facility])
[2018-07-10] MEDS ORDERED: P-EPHED 60MG/TRIPROLIDI 2.5MG TABLET PO PRN (16:21)
[2018-07-10] MEDS ORDERED: MAGNESIUM CITRATE 300 ML BOTTLE PO PRN (16:21)
[2018-07-10] MEDS ORDERED: MENTHOL/PHENOL 1 EACH UD MM PRN (16:21)
[2018-07-10] MEDS ORDERED: MAGNESIUM HYDROX 2400MG/30ML ORAL SUSPENSION 30 ML CUP PO PRN (16:21)
[2018-07-10] MEDS ORDERED: guaiFENesin/D-METHORPHAN HB 10 ML UNIT-DOSE CUPS PO PRN (16:21)
[2018-07-10] MEDS ORDERED: LOPERAMIDE HCL 2 MG CAPSULE PO PRN (16:21)
[2018-07-10] MEDS ORDERED: ACETAMINOPHEN 325 MG TABLET (FP) PO PRN (16:21)
[2018-07-10] MEDS: QUEtiapine FUMARATE 400 MG TABLET PO SCH (21:43)
[2018-07-10] MEDS: THIAMINE HCL 100 MG TABLET (FP) PO SCH (21:43)
[2018-07-10] MEDS: GABAPENTIN 300 MG CAPSULE (FP) PO SCH (21:44)
[2018-07-10] MEDS ORDERED: MELATONIN 5 MG TABLETS PO PRN (22:00)
--- NOTE | 2018-07-11 00:56 | PN ---
[facility] Progress Note Note: As per RN, patient on keppra 500mg BID for SD but not ordered on admission. Same and PPD ordered
[2018-07-11] MEDS ORDERED: GABAPENTIN 300 MG CAPSULE (FP) PO ONE (08:00)
[2018-07-11] MEDS: PRENATAL VITAMINS W/ FOLIC ACID TABLET (FP) PO SCH (09:53)
[2018-07-11] MEDS: QUEtiapine FUMARATE 400 MG TABLET PO SCH ×2 (09:53→21:56)
[2018-07-11] MEDS: CITALOPRAM HYDROBROMIDE 20 MG TABLET (FP) PO SCH (09:53)
[2018-07-11] MEDS: levETIRAcetam 500 MG TABLET (FP) PO SCH ×2 (09:54→21:56)
[2018-07-11] MEDS: GABAPENTIN 300 MG CAPSULE (FP) PO SCH ×2 (09:55→21:56)
[2018-07-11 10:40] LABS: HEMATOCRIT 27.8 % (32.4-45.2); HEMOGLOBIN 8.4 GM/dL (10.7-15.3); MCH 20.3 pg (25.7-33.7); MCHC 30.1 g/dl (32.0-36.0); MEAN CELL VOLUME 67.3 fl (80-96); MEAN PLT VOLUME 10.1 fl (7.5-11.1); PLATELET COUNT 251 K/MM3 (134-434); RBC 4.13 M/mm3 (3.60-5.2); RDW 22.2 % (11.6-15.6); WHITE BLOOD COUNT 7.3 K/mm3 (4.0-10.0)
[2018-07-11 10:46] LABS: CHLORIDE 109 mmol/L (98-107); POTASSIUM 4.2 mmol/L (3.5-5.1); SODIUM 144 mmol/L (136-145)
[2018-07-11 11:01] LABS: ALBUMIN 2.8 g/dl (3.4-5.0); ALK PHOS 48 U/L (45-117); ANION GAP 10 MMOL/L (8-16); BILIRUBIN,TOTAL 0.2 mg/dL (0.2-1.0); BLOOD UREA NITROGEN 14 mg/dL (7-18); CALCIUM 8.4 mg/dL (8.5-10.1); CO2 25 mmol/L (21-32); CREATININE 0.6 mg/dL (0.55-1.02); GLUCOSE,RANDOM 75 mg/dL (74-106); SGOT/AST 14 U/L (15-37); SGPT/ALT 15 U/L (12-78); TOT PROT 5.9 g/dl (6.4-8.2)
--- NOTE | 2018-07-11 13:13 | PN ---
[facility] Progress Note Note: Vital Signs Temperature 97.2 F L 07/11/18 07:20 Pulse Rate 80 07/11/18 07:20 Respiratory Rate 18 07/11/18 07:20 Blood Pressure 109/71 07/11/18 07:20 O2 Sat by Pulse Oximetry (%) Laboratory Last Values WBC 7.3 K/mm3 (4.0-10.0) 07/11/18 08:00 RBC 4.13 M/mm3 (3.60-5.2) 07/11/18 08:00 Hgb 8.4 GM/dL (10.7-15.3) L 07/11/18 08:00 Hct 27.8 % (32.4-45.2) L D 07/11/18 08:00 MCV 67.3 fl (80-96) L 07/11/18 08:00 MCH 20.3 pg (25.7-33.7) L 07/11/18 08:00 MCHC 30.1 g/dl (32.0-36.0) L 07/11/18 08:00 RDW 22.2 % (11.6-15.6) H 07/11/18 08:00 Plt Count 251 K/MM3 (134-434) 07/11/18 08:00 MPV 10.1 fl (7.5-11.1) 07/11/18 08:00 Sodium 144 mmol/L (136-145) 07/11/18 08:00 Potassium 4.2 mmol/L (3.5-5.1) 07/11/18 08:00 Chloride 109 mmol/L (98-107) H 07/11/18 08:00 Carbon Dioxide 25 mmol/L (21-32) 07/11/18 08:00 Anion Gap 10 MMOL/L (8-16) 07/11/18 08:00 BUN 14 mg/dL (7-18) 07/11/18 08:00 Creatinine 0.6 mg/dL (0.55-1.02) 07/11/18 08:00 Creat Clearance w eGFR > 60 (>60) 07/11/18 08:00 Random Glucose 75 mg/dL (74-106) 07/11/18 08:00 Calcium 8.4 mg/dL (8.5-10.1) L 07/11/18 08:00 Total Bilirubin 0.2 mg/dL (0.2-1.0) 07/11/18 08:00 AST 14 U/L (15-37) L 07/11/18 08:00 ALT 15 U/L (12-78) 07/11/18 08:00 Alkaline Phosphatase 48 U/L (45-117) 07/11/18 08:00 Total Protein 5.9 g/dl (6.4-8.2) L 07/11/18 08:00 Albumin 2.8 g/dl (3.4-5.0) L 07/11/18 08:00 RPR Titer Nonreactive (NONREACTIVE) 07/11/18 08:00 Labs reviewed repeat CBC continue to monitor
[2018-07-11] MEDS: THIAMINE HCL 100 MG TABLET (FP) PO SCH (21:56)
[2018-07-11] MEDS ORDERED: TUBERCULIN PPD 5 TU/0.1ML VIAL ID ONE (22:12)
[2018-07-12] MEDS: CITALOPRAM HYDROBROMIDE 20 MG TABLET (FP) PO SCH (10:06)
[2018-07-12] MEDS: QUEtiapine FUMARATE 400 MG TABLET PO SCH ×2 (10:07→22:52)
[2018-07-12] MEDS: levETIRAcetam 500 MG TABLET (FP) PO SCH ×2 (10:07→22:52)
[2018-07-12] MEDS: GABAPENTIN 300 MG CAPSULE (FP) PO SCH ×2 (10:08→22:53)
[2018-07-12] MEDS: PRENATAL VITAMINS W/ FOLIC ACID TABLET (FP) PO SCH (10:08)
[2018-07-12] MEDS: IBUPROFEN 400 MG TABLET (FP) PO PRN (22:53)
[2018-07-12] MEDS: THIAMINE HCL 100 MG TABLET (FP) PO SCH (22:54)
--- NOTE | 2018-07-13 08:45 | HP ---
Psychiatrist Admission - Data Date of interview: 07/13/18 Admission source: [facility] Identifying data: This is [facility] for this 37 years old single H female mother of 3 (children reside with the patient's mother).She is undomiciled,supported by family. Medical History: Significant for BA. Psychiatric History: Patient reports depression,mood instability,anxeity, insomnia related to drug use more than 4-5 years.Patient reports one psychiatric hospitalization about 2 years ago to [facility], [place] to address above problems.She was dx with Depressive disorder and started on Seroquel 100 mg po am and 400 mg po hs.Cymbalta 30 mg po daily and Topamax 200 mg po bid.Reports no suicidal attempts.Poor compliance with treastment.Patient has no OPD care at present.She obtains psychiatropic medications from local ER: Seroquel 400 mg po bid ,Neurontin 600 mg po hs and 300 mg po daily. Physical/Sexual Abuse/Trauma History: denies Vital Signs: Vital Signs - 24 hr 07/13/18 07/13/18 03:30 07:05 Temperature 97.1 F L Pulse Rate 67 Respiratory 18 18 Rate Blood Pressure 100/69 Allergies/Adverse Reactions: Allergies Allergy/AdvReac Type Severity Reaction Status Date / Time penicillin G Allergy Severe Swelling Verified 07/10/18 15:29 Date of last physical exam: 07/10/18 Concur with the findings of this exam: Yes - Substance Abuse/Tx History Hx Alcohol Use: Yes Hx Substance Use: Yes (cocaine since 27 yo,spending $500 when has money) Substance Use Type: Cocaine Hx Substance Use Treatment: Yes (left [facility] in Jul 2017) Mental Status Exam - Mental Status Exam Alert and Oriented to: Time, Place, Person Cognitive Function: Grossly Intact Patient Appearance: Unkempt Mood: Sad, Irritable Affect: Mood Congruent, Labile Patient Behavior: Cooperative Speech Pattern: Clear Voice Loudness: Normal Thought Process: Goal Oriented Thought Disorder: Not Present Hallucinations: Denies Suicidal Ideation: Denies Homicidal Ideation: Denies Insight/Judgement: Fair Sleep: Fair Appetite: Good Muscle strength/Tone: Normal Gait/Station: Normal Psychiatric Findings - Problem List ([place] 1, 2,3) (1) Asthma Current Visit: Yes Status: Chronic Qualifiers: Asthma severity: mild intermittent Asthma complication type: with status asthmaticus (2) Cocaine dependence Current Visit: Yes Status: Chronic (3) Nicotine dependence Current Visit: Yes Status: Chronic Qualifiers: Nicotine product type: cigarettes Substance use status: in withdrawal Qualified Code(s): F17.213 - Nicotine dependence, cigarettes, with withdrawal (4) Substance induced mood disorder Current Visit: Yes Status: Chronic - Initial Treatment Plan Initial Treatment Plan: Seroquel 400 mg po bid,Neurontin 600 mg po daily and 300 mg po daily,Celexa 30 mg po daily. Will monitor progress.
[2018-07-13] MEDS: CITALOPRAM HYDROBROMIDE 20 MG TABLET (FP) PO SCH (10:21)
[2018-07-13] MEDS: levETIRAcetam 500 MG TABLET (FP) PO SCH ×2 (10:21→22:00)
[2018-07-13] MEDS: GABAPENTIN 300 MG CAPSULE (FP) PO SCH ×2 (10:21→22:00)
[2018-07-13] MEDS: QUEtiapine FUMARATE 400 MG TABLET PO SCH ×2 (10:21→22:00)
[2018-07-13] MEDS: PRENATAL VITAMINS W/ FOLIC ACID TABLET (FP) PO SCH (10:21)
--- NOTE | 2018-07-13 11:26 | EKG ---
Test Reason : Blood Pressure : / mmHG Vent. Rate : 085 BPM Atrial Rate : 085 BPM P-R Int : 150 ms QRS Dur : 080 ms QT Int : 390 ms P-R-T Axes : 062 074 056 degrees QTc Int : 464 ms NORMAL SINUS RHYTHM NORMAL ECG WHEN COMPARED WITH ECG OF 01-JUL-2017 22:27, NO SIGNIFICANT CHANGE WAS FOUND Confirmed by PEBBLES PINEDA MD ([id number]) on 07/13/2018 11:25:38 AM Referred By: Confirmed By:PEBBLES PINEDA MD
[2018-07-13] MEDS: IBUPROFEN 400 MG TABLET (FP) PO PRN (13:42)
--- NOTE | 2018-07-13 13:46 | PN ---
S Progress Note Note: Vital Signs Temperature 97.1 F L 07/13/18 07:05 Pulse Rate 67 07/13/18 07:05 Respiratory Rate 18 07/13/18 07:05 Blood Pressure 100/69 07/13/18 07:05 O2 Sat by Pulse Oximetry (%) Patient refuse repeat Labs and Keppra levels.
[2018-07-13 14:53] LABS: URINE APPEARANCE SLCLOUDY; URINE BILIRUBIN NEGATIVE (<2.0 mg/dL); URINE COLOR STRAW; URINE GLUCOSE (UA) NEGATIVE (NEGATIVE); URINE KETONE NEGATIVE (NEGATIVE); URINE LEUK ESTERASE NEGATIVE (NEGATIVE); URINE NITRITE NEGATIVE (NEGATIVE); URINE PROTEIN NEGATIVE (NEGATIVE); URINE UROBILINOGEN NEGATIVE mg/dL (0.2-1.0)
[2018-07-13 14:59] LABS: EPI CELLS RARE /HPF (FEW); URINE BACTERIA RARE /hpf (NONE SEEN)
[2018-07-13] MEDS: THIAMINE HCL 100 MG TABLET (FP) PO SCH (21:59)
[2018-07-14] MEDS: CITALOPRAM HYDROBROMIDE 20 MG TABLET (FP) PO SCH (10:09)
[2018-07-14] MEDS: PRENATAL VITAMINS W/ FOLIC ACID TABLET (FP) PO SCH (10:09)
[2018-07-14] MEDS: levETIRAcetam 500 MG TABLET (FP) PO SCH ×2 (10:09→21:16)
[2018-07-14] MEDS: GABAPENTIN 300 MG CAPSULE (FP) PO SCH ×2 (10:10→21:15)
[2018-07-14] MEDS: QUEtiapine FUMARATE 400 MG TABLET PO SCH ×2 (10:11→21:16)
[2018-07-14] MEDS: IBUPROFEN 400 MG TABLET (FP) PO PRN (11:52)
--- NOTE | 2018-07-14 13:28 | PN ---
[facility] Progress Note Note: c/o feeling anxious, no other complaints Vital Signs Temperature 98.1 F 07/14/18 07:02 Pulse Rate 78 07/14/18 07:02 Respiratory Rate 20 07/14/18 07:02 Blood Pressure 91/65 07/14/18 07:02 O2 Sat by Pulse Oximetry (%) Laboratory Last Values WBC 7.3 K/mm3 (4.0-10.0) 07/11/18 08:00 RBC 4.13 M/mm3 (3.60-5.2) 07/11/18 08:00 Hgb 8.4 GM/dL (10.7-15.3) L 07/11/18 08:00 Hct 27.8 % (32.4-45.2) L D 07/11/18 08:00 MCV 67.3 fl (80-96) L 07/11/18 08:00 MCH 20.3 pg (25.7-33.7) L 07/11/18 08:00 MCHC 30.1 g/dl (32.0-36.0) L 07/11/18 08:00 RDW 22.2 % (11.6-15.6) H 07/11/18 08:00 Plt Count 251 K/MM3 (134-434) 07/11/18 08:00 MPV 10.1 fl (7.5-11.1) 07/11/18 08:00 Sodium 144 mmol/L (136-145) 07/11/18 08:00 Potassium 4.2 mmol/L (3.5-5.1) 07/11/18 08:00 Chloride 109 mmol/L (98-107) H 07/11/18 08:00 Carbon Dioxide 25 mmol/L (21-32) 07/11/18 08:00 Anion Gap 10 MMOL/L (8-16) 07/11/18 08:00 BUN 14 mg/dL (7-18) 07/11/18 08:00 Creatinine 0.6 mg/dL (0.55-1.02) 07/11/18 08:00 Creat Clearance w eGFR > 60 (>60) 07/11/18 08:00 Random Glucose 75 mg/dL (74-106) 07/11/18 08:00 Calcium 8.4 mg/dL (8.5-10.1) L 07/11/18 08:00 Total Bilirubin 0.2 mg/dL (0.2-1.0) 07/11/18 08:00 AST 14 U/L (15-37) L 07/11/18 08:00 ALT 15 U/L (12-78) 07/11/18 08:00 Alkaline Phosphatase 48 U/L (45-117) 07/11/18 08:00 Total Protein 5.9 g/dl (6.4-8.2) L 07/11/18 08:00 Albumin 2.8 g/dl (3.4-5.0) L 07/11/18 08:00 Urine Color Straw 07/13/18 13:00 Urine Appearance Slcloudy 07/13/18 13:00 Urine pH 6.0 (5.0-8.0) 07/13/18 13:00 Ur Specific [place] 1.004 (1.001-1.035) 07/13/18 13:00 Urine Protein Negative (NEGATIVE) 07/13/18 13:00 Urine Glucose (UA) Negative (NEGATIVE) 07/13/18 13:00 Urine Ketones Negative (NEGATIVE) 07/13/18 13:00 Urine Blood 1+ (NEGATIVE) H 07/13/18 13:00 Urine Nitrite Negative (NEGATIVE) 07/13/18 13:00 Urine Bilirubin Negative (<2.0 mg/dL) 07/13/18 13:00 Urine Urobilinogen Negative mg/dL (0.2-1.0) 07/13/18 13:00 Ur Leukocyte Esterase Negative (NEGATIVE) 07/13/18 13:00 Urine WBC (Auto) None /hpf (3-5) 07/13/18 13:00 Urine RBC (Auto) 1 /hpf (0-3) 07/13/18 13:00 Ur Epithelial Cells Rare /HPF (FEW) 07/13/18 13:00 Urine Bacteria Rare /hpf (NONE SEEN) 07/13/18 13:00 RPR Titer Nonreactive (NONREACTIVE) 07/11/18 08:00 Patient stable vistaril PRN increase po fluids continue to monitor
[2018-07-14] MEDS: THIAMINE HCL 100 MG TABLET (FP) PO SCH (21:17)
[2018-07-14] MEDS: hydrOXYzine PAMOATE 50 MG CAPSULE (FP) PO PRN (22:02)
[2018-07-15] MEDS: IBUPROFEN 400 MG TABLET (FP) PO PRN (01:19)
[2018-07-15] MEDS: hydrOXYzine PAMOATE 50 MG CAPSULE (FP) PO PRN ×2 (09:43→21:19)
[2018-07-15] MEDS: levETIRAcetam 500 MG TABLET (FP) PO SCH ×2 (09:45→21:19)
[2018-07-15] MEDS: PRENATAL VITAMINS W/ FOLIC ACID TABLET (FP) PO SCH (09:45)
[2018-07-15] MEDS: QUEtiapine FUMARATE 400 MG TABLET PO SCH ×2 (09:45→21:19)
[2018-07-15] MEDS: GABAPENTIN 300 MG CAPSULE (FP) PO SCH ×2 (09:45→21:19)
[2018-07-15] MEDS ORDERED: CITALOPRAM HYDROBROMIDE 10 MG TABLET (FP) ONE (10:13)
[2018-07-15] MEDS ORDERED: CITALOPRAM HYDROBROMIDE 20 MG TABLET (FP) ONE (10:13)
[2018-07-15] MEDS: CITALOPRAM HYDROBROMIDE PO SCH (10:24)
[2018-07-15] MEDS: THIAMINE HCL 100 MG TABLET (FP) PO SCH (21:20)
[2018-07-16] MEDS ORDERED: CITALOPRAM HYDROBROMIDE 10 MG TABLET (FP) ONE (08:24)
[2018-07-16] MEDS ORDERED: CITALOPRAM HYDROBROMIDE 20 MG TABLET (FP) ONE (08:24)
[2018-07-16] MEDS: CITALOPRAM HYDROBROMIDE PO SCH (09:05)
[2018-07-16] MEDS: QUEtiapine FUMARATE 400 MG TABLET PO SCH ×2 (09:06→21:28)
[2018-07-16] MEDS: GABAPENTIN 300 MG CAPSULE (FP) PO SCH ×2 (09:06→21:26)
[2018-07-16] MEDS: PRENATAL VITAMINS W/ FOLIC ACID TABLET (FP) PO SCH (09:06)
[2018-07-16] MEDS: levETIRAcetam 500 MG TABLET (FP) PO SCH ×2 (09:06→21:26)
[2018-07-16] MEDS: IBUPROFEN 400 MG TABLET (FP) PO PRN (10:46)
[2018-07-16] MEDS: hydrOXYzine PAMOATE 50 MG CAPSULE (FP) PO PRN (10:46)
--- NOTE | 2018-07-16 13:22 | PN ---
[facility] Progress Note Note: Vital Signs Temperature 98.1 F 07/16/18 07:07 Pulse Rate 64 07/16/18 07:07 Respiratory Rate 16 07/16/18 07:07 Blood Pressure 101/69 07/16/18 07:07 O2 Sat by Pulse Oximetry (%) Laboratory Last Values WBC 7.3 K/mm3 (4.0-10.0) 07/11/18 08:00 RBC 4.13 M/mm3 (3.60-5.2) 07/11/18 08:00 Hgb 8.4 GM/dL (10.7-15.3) L 07/11/18 08:00 Hct 27.8 % (32.4-45.2) L D 07/11/18 08:00 MCV 67.3 fl (80-96) L 07/11/18 08:00 MCH 20.3 pg (25.7-33.7) L 07/11/18 08:00 MCHC 30.1 g/dl (32.0-36.0) L 07/11/18 08:00 RDW 22.2 % (11.6-15.6) H 07/11/18 08:00 Plt Count 251 K/MM3 (134-434) 07/11/18 08:00 MPV 10.1 fl (7.5-11.1) 07/11/18 08:00 Sodium 144 mmol/L (136-145) 07/11/18 08:00 Potassium 4.2 mmol/L (3.5-5.1) 07/11/18 08:00 Chloride 109 mmol/L (98-107) H 07/11/18 08:00 Carbon Dioxide 25 mmol/L (21-32) 07/11/18 08:00 Anion Gap 10 MMOL/L (8-16) 07/11/18 08:00 BUN 14 mg/dL (7-18) 07/11/18 08:00 Creatinine 0.6 mg/dL (0.55-1.02) 07/11/18 08:00 Creat Clearance w eGFR > 60 (>60) 07/11/18 08:00 Random Glucose 75 mg/dL (74-106) 07/11/18 08:00 Calcium 8.4 mg/dL (8.5-10.1) L 07/11/18 08:00 Total Bilirubin 0.2 mg/dL (0.2-1.0) 07/11/18 08:00 AST 14 U/L (15-37) L 07/11/18 08:00 ALT 15 U/L (12-78) 07/11/18 08:00 Alkaline Phosphatase 48 U/L (45-117) 07/11/18 08:00 Total Protein 5.9 g/dl (6.4-8.2) L 07/11/18 08:00 Albumin 2.8 g/dl (3.4-5.0) L 07/11/18 08:00 Urine Color Straw 07/13/18 13:00 Urine Appearance Slcloudy 07/13/18 13:00 Urine pH 6.0 (5.0-8.0) 07/13/18 13:00 Ur Specific [place] 1.004 (1.001-1.035) 07/13/18 13:00 Urine Protein Negative (NEGATIVE) 07/13/18 13:00 Urine Glucose (UA) Negative (NEGATIVE) 07/13/18 13:00 Urine Ketones Negative (NEGATIVE) 07/13/18 13:00 Urine Blood 1+ (NEGATIVE) H 07/13/18 13:00 Urine Nitrite Negative (NEGATIVE) 07/13/18 13:00 Urine Bilirubin Negative (<2.0 mg/dL) 07/13/18 13:00 Urine Urobilinogen Negative mg/dL (0.2-1.0) 07/13/18 13:00 Ur Leukocyte Esterase Negative (NEGATIVE) 07/13/18 13:00 Urine WBC (Auto) None /hpf (3-5) 07/13/18 13:00 Urine RBC (Auto) 1 /hpf (0-3) 07/13/18 13:00 Ur Epithelial Cells Rare /HPF (FEW) 07/13/18 13:00 Urine Bacteria Rare /hpf (NONE SEEN) 07/13/18 13:00 Levetiracetam None detected MCG/ML (10.0-40.0) 07/12/18 09:30 RPR Titer Nonreactive (NONREACTIVE) 07/11/18 08:00 Patient stable on keppra 500 mg BID repeat keppra levels continue to monitor
[2018-07-16] MEDS: MAG HYDROX/AL HYDROX/SIMETH 30 ML UNIT-DOSE CUP PO PRN (17:42)
--- NOTE | 2018-07-16 18:14 | PN ---
[facility] Progress Note Note: Vital Signs Temperature 98.1 F 07/16/18 07:07 Pulse Rate 64 07/16/18 07:07 Respiratory Rate 16 07/16/18 07:07 Blood Pressure 101/69 07/16/18 07:07 O2 Sat by Pulse Oximetry (%) c/o of midpigastric pain protonix 20 mg symptoms don't improve will send patient to [facility] continue to monitor
[2018-07-16] MEDS: PANTOPRAZOLE 20 MG TABLET (FP) PO SCH (21:27)
[2018-07-16] MEDS: THIAMINE HCL 100 MG TABLET (FP) PO SCH (21:28)
[2018-07-17] MEDS ORDERED: CITALOPRAM HYDROBROMIDE 10 MG TABLET (FP) ONE (09:54)
[2018-07-17] MEDS ORDERED: CITALOPRAM HYDROBROMIDE 20 MG TABLET (FP) ONE (09:55)
[2018-07-17] MEDS: PANTOPRAZOLE 20 MG TABLET (FP) PO SCH (10:08)
[2018-07-17] MEDS: levETIRAcetam 500 MG TABLET (FP) PO SCH ×2 (10:08→21:28)
[2018-07-17] MEDS: GABAPENTIN 300 MG CAPSULE (FP) PO SCH ×2 (10:08→21:28)
[2018-07-17] MEDS: CITALOPRAM HYDROBROMIDE PO SCH (10:08)
[2018-07-17] MEDS: QUEtiapine FUMARATE 400 MG TABLET PO SCH ×2 (10:09→21:28)
[2018-07-17] MEDS: PRENATAL VITAMINS W/ FOLIC ACID TABLET (FP) PO SCH (10:09)
[2018-07-17] MEDS: MAG HYDROX/AL HYDROX/SIMETH 30 ML UNIT-DOSE CUP PO PRN ×2 (13:55→22:06)
[2018-07-17] MEDS: hydrOXYzine PAMOATE 50 MG CAPSULE (FP) PO PRN (19:29)
[2018-07-17] MEDS: THIAMINE HCL 100 MG TABLET (FP) PO SCH (21:29)
[2018-07-18] MEDS ORDERED: CITALOPRAM HYDROBROMIDE 10 MG TABLET (FP) ONE (08:55)
[2018-07-18] MEDS ORDERED: CITALOPRAM HYDROBROMIDE 20 MG TABLET (FP) ONE (08:56)
[2018-07-18] MEDS: PANTOPRAZOLE 20 MG TABLET (FP) PO SCH (09:31)
[2018-07-18] MEDS: CITALOPRAM HYDROBROMIDE PO SCH (09:31)
[2018-07-18] MEDS: GABAPENTIN 300 MG CAPSULE (FP) PO SCH ×2 (09:32→21:45)
[2018-07-18] MEDS: QUEtiapine FUMARATE 400 MG TABLET PO SCH ×2 (09:32→21:45)
[2018-07-18] MEDS: levETIRAcetam 500 MG TABLET (FP) PO SCH ×2 (09:32→21:45)
[2018-07-18] MEDS: PRENATAL VITAMINS W/ FOLIC ACID TABLET (FP) PO SCH (09:33)
[2018-07-18] MEDS: hydrOXYzine PAMOATE 50 MG CAPSULE (FP) PO PRN ×2 (11:52→18:43)
[2018-07-18] MEDS: MAG HYDROX/AL HYDROX/SIMETH 30 ML UNIT-DOSE CUP PO PRN (11:52)
[2018-07-18] MEDS ORDERED: PT OWN MED DRAWER 7, Y5N ONE ×2 (21:11→22:33)
[2018-07-18] MEDS: THIAMINE HCL 100 MG TABLET (FP) PO SCH (21:46)
[2018-07-19] MEDS ORDERED: CITALOPRAM HYDROBROMIDE 10 MG TABLET (FP) ONE (08:29)
[2018-07-19] MEDS ORDERED: CITALOPRAM HYDROBROMIDE 20 MG TABLET (FP) ONE (08:29)
[2018-07-19] MEDS: QUEtiapine FUMARATE 400 MG TABLET PO SCH ×2 (10:04→21:37)
[2018-07-19] MEDS: CITALOPRAM HYDROBROMIDE PO SCH (10:04)
[2018-07-19] MEDS: levETIRAcetam 500 MG TABLET (FP) PO SCH ×2 (10:04→21:37)
[2018-07-19] MEDS: PRENATAL VITAMINS W/ FOLIC ACID TABLET (FP) PO SCH (10:04)
[2018-07-19] MEDS: GABAPENTIN 300 MG CAPSULE (FP) PO SCH ×2 (10:04→21:37)
[2018-07-19] MEDS: PANTOPRAZOLE 20 MG TABLET (FP) PO SCH (10:04)
[2018-07-19] MEDS: THIAMINE HCL 100 MG TABLET (FP) PO SCH (21:36)
[2018-07-20] MEDS ORDERED: CITALOPRAM HYDROBROMIDE 20 MG TABLET (FP) ONE (08:16)
[2018-07-20] MEDS ORDERED: CITALOPRAM HYDROBROMIDE 10 MG TABLET (FP) ONE (08:16)
[2018-07-20] MEDS: CITALOPRAM HYDROBROMIDE PO SCH (09:49)
[2018-07-20] MEDS: QUEtiapine FUMARATE 400 MG TABLET PO SCH ×2 (09:50→21:15)
[2018-07-20] MEDS: PANTOPRAZOLE 20 MG TABLET (FP) PO SCH (09:50)
[2018-07-20] MEDS: GABAPENTIN 300 MG CAPSULE (FP) PO SCH ×2 (09:51→21:15)
[2018-07-20] MEDS: PRENATAL VITAMINS W/ FOLIC ACID TABLET (FP) PO SCH (09:51)
[2018-07-20] MEDS: levETIRAcetam 500 MG TABLET (FP) PO SCH ×2 (09:51→21:15)
--- NOTE | 2018-07-20 13:28 | PN ---
S Progress Note Note: Vital Signs Temperature 98.0 F 07/20/18 06:46 Pulse Rate 70 07/20/18 06:46 Respiratory Rate 18 07/20/18 06:46 Blood Pressure 102/67 07/20/18 06:46 O2 Sat by Pulse Oximetry (%) Keppra levels pending c/o vertigo antivert PRN increase po fluids continue to monitor
[2018-07-20] MEDS: MECLIZINE HCL 12.5 MG TABLET PO SCH ×2 (19:00→23:19)
[2018-07-20] MEDS: THIAMINE HCL 100 MG TABLET (FP) PO SCH (21:15)
[2018-07-20] MEDS: hydrOXYzine PAMOATE 50 MG CAPSULE (FP) PO PRN (21:16)
[2018-07-20] MEDS: IBUPROFEN 400 MG TABLET (FP) PO PRN (21:17)
[2018-07-21] MEDS: MECLIZINE HCL 12.5 MG TABLET PO SCH ×4 (06:18→23:34)
[2018-07-21] MEDS ORDERED: CITALOPRAM HYDROBROMIDE 20 MG TABLET (FP) ONE (08:42)
[2018-07-21] MEDS ORDERED: CITALOPRAM HYDROBROMIDE 10 MG TABLET (FP) ONE (08:42)
[2018-07-21] MEDS: GABAPENTIN 300 MG CAPSULE (FP) PO SCH ×2 (09:37→21:18)
[2018-07-21] MEDS: CITALOPRAM HYDROBROMIDE PO SCH (09:37)
[2018-07-21] MEDS: PANTOPRAZOLE 20 MG TABLET (FP) PO SCH (09:38)
[2018-07-21] MEDS: levETIRAcetam 500 MG TABLET (FP) PO SCH (09:38)
[2018-07-21] MEDS: PRENATAL VITAMINS W/ FOLIC ACID TABLET (FP) PO SCH (09:38)
[2018-07-21] MEDS: QUEtiapine FUMARATE 400 MG TABLET PO SCH ×2 (09:38→21:18)
--- NOTE | 2018-07-21 10:47 | PN ---
[facility] Progress Note Note: received nurse called keppra level is 7 reported seizure since 2014 taking keppra on and off average seizure episode 2- 3 / month, last seizure 07/09/18 treated at [facility], repeat keppra level increase keppra to 1500 mg per day
[2018-07-21] MEDS ORDERED: levETIRAcetam 500 MG TABLET (FP) PO SCH (11:15)
[2018-07-21] MEDS ORDERED: levETIRAcetam 500 MG TABLET (FP) PO ONE ×2 (12:01→19:24)
[2018-07-21] MEDS ORDERED: levETIRAcetam 250 MG TABLET (FP) PO ONE ×2 (12:01→19:24)
--- NOTE | 2018-07-21 14:32 | PN ---
[facility] Progress Note Note: PATIENT SEEN FOR REVIEW OF LABS. PATIENT HAS KNOWN HX OF ANEMIA. PATIENT STATES SHE DOES NOT WANT VITAMIN AND WAS TREATED IN PAST WITH IRON SUPPLEMENT. DENIES MEDICAL COMPLAINTS TODAY. WILL ORDER FESO4 325MG BID AND D/C V ITAMIN. CONTINUE TO MONITOR CLINICALLY. Vital Signs Temperature 98.1 F 07/21/18 06:26 Pulse Rate 88 07/21/18 06:26 Respiratory Rate 18 07/21/18 06:26 Blood Pressure 118/57 07/21/18 06:26 O2 Sat by Pulse Oximetry (%) Laboratory Tests 07/11/18 07/11/18 07/11/18 08:00 08:00 08:00 WBC 7.3 RBC 4.13 Hgb 8.4 L Hct 27.8 L D MCV 67.3 L MCH 20.3 L MCHC 30.1 L RDW 22.2 H Plt Count 251 MPV 10.1 Sodium 144 Potassium 4.2 Chloride 109 H Carbon Dioxide 25 Anion Gap 10 BUN 14 Creatinine 0.6 Creat Clearance w eGFR > 60 Random Glucose 75 Calcium 8.4 L Total Bilirubin 0.2 AST 14 L ALT 15 Alkaline Phosphatase 48 Total Protein 5.9 L Albumin 2.8 L Urine Color Urine Appearance Urine pH Ur Specific [place] Urine Protein Urine Glucose (UA) Urine Ketones Urine Blood Urine Nitrite Urine Bilirubin Urine Urobilinogen Ur Leukocyte Esterase Urine WBC (Auto) Urine RBC (Auto) Ur Epithelial Cells Urine Bacteria Levetiracetam RPR Titer Nonreactive 07/12/18 07/13/18 07/17/18 09:30 13:00 08:30 WBC RBC Hgb Hct MCV MCH MCHC RDW Plt Count MPV Sodium Potassium Chloride Carbon Dioxide Anion Gap BUN Creatinine Creat Clearance w eGFR Random Glucose Calcium Total Bilirubin AST ALT Alkaline Phosphatase Total Protein Albumin Urine Color Straw Urine Appearance Slcloudy Urine pH 6.0 Ur Specific [place] 1.004 Urine Protein Negative Urine Glucose (UA) Negative Urine Ketones Negative Urine Blood 1+ H Urine Nitrite Negative Urine Bilirubin Negative Urine Urobilinogen Negative Ur Leukocyte Esterase Negative Urine WBC (Auto) None Urine RBC (Auto) 1 Ur Epithelial Cells Rare Urine Bacteria Rare Levetiracetam None detected 7.0 L RPR Titer
[2018-07-21] MEDS: FERROUS SO4 325 MG TABLET (FP) PO SCH (21:15)
[2018-07-21] MEDS: THIAMINE HCL 100 MG TABLET (FP) PO SCH (21:17)
[2018-07-22] MEDS: MECLIZINE HCL 12.5 MG TABLET PO SCH ×4 (07:00→23:24)
[2018-07-22] MEDS ORDERED: CITALOPRAM HYDROBROMIDE 10 MG TABLET (FP) ONE (08:35)
[2018-07-22] MEDS ORDERED: levETIRAcetam 250 MG TABLET (FP) PO ONE ×2 (08:36→18:22)
[2018-07-22] MEDS ORDERED: CITALOPRAM HYDROBROMIDE 20 MG TABLET (FP) ONE (08:36)
[2018-07-22] MEDS ORDERED: levETIRAcetam 500 MG TABLET (FP) PO ONE ×2 (08:36→18:21)
[2018-07-22] MEDS: QUEtiapine FUMARATE 400 MG TABLET PO SCH ×2 (09:42→21:05)
[2018-07-22] MEDS: CITALOPRAM HYDROBROMIDE PO SCH (09:43)
[2018-07-22] MEDS: PANTOPRAZOLE 20 MG TABLET (FP) PO SCH (09:43)
[2018-07-22] MEDS: FERROUS SO4 325 MG TABLET (FP) PO SCH ×2 (09:43→21:04)
[2018-07-22] MEDS: GABAPENTIN 300 MG CAPSULE (FP) PO SCH ×2 (09:43→21:05)
[2018-07-22] MEDS: hydrOXYzine PAMOATE 50 MG CAPSULE (FP) PO PRN (19:03)
[2018-07-22] MEDS: THIAMINE HCL 100 MG TABLET (FP) PO SCH (21:07)
[2018-07-23] MEDS: MECLIZINE HCL 12.5 MG TABLET PO SCH ×2 (06:49→11:59)
[2018-07-23] MEDS ORDERED: CITALOPRAM HYDROBROMIDE 10 MG TABLET (FP) ONE (08:22)
[2018-07-23] MEDS ORDERED: CITALOPRAM HYDROBROMIDE 20 MG TABLET (FP) ONE (08:23)
[2018-07-23] MEDS ORDERED: levETIRAcetam 500 MG TABLET (FP) PO ONE ×2 (08:23→20:12)
[2018-07-23] MEDS ORDERED: levETIRAcetam 250 MG TABLET (FP) PO ONE ×2 (08:23→20:12)
[2018-07-23] MEDS: CITALOPRAM HYDROBROMIDE PO SCH (09:47)
[2018-07-23] MEDS: PANTOPRAZOLE 20 MG TABLET (FP) PO SCH (09:48)
[2018-07-23] MEDS: FERROUS SO4 325 MG TABLET (FP) PO SCH ×2 (09:48→21:19)
[2018-07-23] MEDS: QUEtiapine FUMARATE 400 MG TABLET PO SCH ×2 (09:48→21:21)
[2018-07-23] MEDS: GABAPENTIN 300 MG CAPSULE (FP) PO SCH ×2 (09:49→21:19)
[2018-07-23] MEDS ORDERED: PT OWN MED DRAWER 7, Y5N ONE (10:09)
[2018-07-23] MEDS ORDERED: MECLIZINE HCL 12.5 MG TABLET PO PRN (14:23)
[2018-07-23] MEDS: hydrOXYzine PAMOATE 50 MG CAPSULE (FP) PO PRN (19:22)
[2018-07-23] MEDS: THIAMINE HCL 100 MG TABLET (FP) PO SCH (21:20)
[2018-07-24] MEDS ORDERED: levETIRAcetam 250 MG TABLET (FP) PO ONE ×2 (08:26→19:42)
[2018-07-24] MEDS ORDERED: CITALOPRAM HYDROBROMIDE 10 MG TABLET (FP) ONE (08:26)
[2018-07-24] MEDS ORDERED: CITALOPRAM HYDROBROMIDE 20 MG TABLET (FP) ONE (08:26)
[2018-07-24] MEDS ORDERED: levETIRAcetam 500 MG TABLET (FP) PO ONE ×2 (08:26→19:42)
[2018-07-24] MEDS: CITALOPRAM HYDROBROMIDE PO SCH (10:14)
[2018-07-24] MEDS: FERROUS SO4 325 MG TABLET (FP) PO SCH ×2 (10:14→21:17)
[2018-07-24] MEDS: GABAPENTIN 300 MG CAPSULE (FP) PO SCH ×2 (10:14→21:17)
[2018-07-24] MEDS: PANTOPRAZOLE 20 MG TABLET (FP) PO SCH (10:14)
[2018-07-24] MEDS: QUEtiapine FUMARATE 400 MG TABLET PO SCH ×2 (10:15→21:18)
[2018-07-24] MEDS: MAG HYDROX/AL HYDROX/SIMETH 30 ML UNIT-DOSE CUP PO PRN (12:44)
[2018-07-24] MEDS: THIAMINE HCL 100 MG TABLET (FP) PO SCH (21:17)
[2018-07-25] MEDS ORDERED: CITALOPRAM HYDROBROMIDE 20 MG TABLET (FP) ONE (08:56)
[2018-07-25] MEDS ORDERED: CITALOPRAM HYDROBROMIDE 10 MG TABLET (FP) ONE (08:56)
[2018-07-25] MEDS ORDERED: levETIRAcetam 500 MG TABLET (FP) PO ONE ×2 (08:56→20:29)
[2018-07-25] MEDS ORDERED: levETIRAcetam 250 MG TABLET (FP) PO ONE ×2 (08:56→20:30)
[2018-07-25] MEDS: CITALOPRAM HYDROBROMIDE PO SCH (10:07)
[2018-07-25] MEDS: PANTOPRAZOLE 20 MG TABLET (FP) PO SCH (10:08)
[2018-07-25] MEDS: FERROUS SO4 325 MG TABLET (FP) PO SCH ×2 (10:08→21:01)
[2018-07-25] MEDS: GABAPENTIN 300 MG CAPSULE (FP) PO SCH ×2 (10:08→21:01)
[2018-07-25] MEDS: QUEtiapine FUMARATE 400 MG TABLET PO SCH ×2 (10:09→21:01)
[2018-07-25] MEDS ORDERED: PT OWN MED DRAWER 7, Y5N ONE (20:30)
[2018-07-25] MEDS: THIAMINE HCL 100 MG TABLET (FP) PO SCH (21:01)
[2018-07-26] MEDS ORDERED: CITALOPRAM HYDROBROMIDE 10 MG TABLET (FP) ONE (08:33)
[2018-07-26] MEDS ORDERED: levETIRAcetam 250 MG TABLET (FP) PO ONE ×2 (08:34→20:42)
[2018-07-26] MEDS ORDERED: levETIRAcetam 500 MG TABLET (FP) PO ONE ×2 (08:34→20:42)
[2018-07-26] MEDS ORDERED: CITALOPRAM HYDROBROMIDE 20 MG TABLET (FP) ONE (08:34)
[2018-07-26] MEDS: PANTOPRAZOLE 20 MG TABLET (FP) PO SCH (10:53)
[2018-07-26] MEDS: CITALOPRAM HYDROBROMIDE PO SCH (10:53)
[2018-07-26] MEDS: FERROUS SO4 325 MG TABLET (FP) PO SCH ×2 (10:53→21:09)
[2018-07-26] MEDS: GABAPENTIN 300 MG CAPSULE (FP) PO SCH ×2 (10:54→21:08)
[2018-07-26] MEDS: QUEtiapine FUMARATE 400 MG TABLET PO SCH ×2 (10:55→21:09)
[2018-07-26] MEDS: THIAMINE HCL 100 MG TABLET (FP) PO SCH (21:09)
[2018-07-27] MEDS: MAG HYDROX/AL HYDROX/SIMETH 30 ML UNIT-DOSE CUP PO PRN (01:27)
[2018-07-27 07:21] VITALS: BP 109/76; PULSE 81; TEMP 97.3
[2018-07-27] MEDS ORDERED: CITALOPRAM HYDROBROMIDE 10 MG TABLET (FP) ONE (08:36)
[2018-07-27] MEDS ORDERED: levETIRAcetam 500 MG TABLET (FP) PO ONE (08:36)
[2018-07-27] MEDS ORDERED: CITALOPRAM HYDROBROMIDE 20 MG TABLET (FP) ONE (08:36)
[2018-07-27] MEDS ORDERED: levETIRAcetam 250 MG TABLET (FP) PO ONE (08:37)
--- NOTE | 2018-07-27 10:39 | PN ---
[facility] Progress Note Note: Patient decided to leave today (early discharge).According to the medical staff patient became loud,escalating,threatening staff.Security was involved, escorting her to the lobby.Scripts for 30 days provided.patient will continue to address her issues on outpatient basis.See staff notes for details.
== END 2018-07-27 10:03 | disposition home or self-care (01) | DRG 772 ==
LOC: YASAS 12:38 → Y3E 15:35
PROVIDERS: ADMIT Psychiatry & Neurology Psychiatry; ATTEND Psychiatry & Neurology Psychiatry
PROC: HZ42ZZZ Group Counseling for Substance Abuse Treatment, Cognitive-Behavioral (ICD-10-PCS; principal; 2018-07-10)
DX: F14.20 Cocaine dependence, uncomplicated (principal); F17.213 Nicotine dependence, cigarettes, with withdrawal; F19.24 Other psychoactive substance dependence with psychoactive substance-induced mood disorder; F32.9 Major depressive disorder, single episode, unspecified; J45.22 Mild intermittent asthma with status asthmaticus; G40.909 Epilepsy, unspecified, not intractable, without status epilepticus; D50.9 Iron deficiency anemia, unspecified; Z88.0 Allergy status to penicillin; Z59.0 Homelessness
CPT/HCPCS: 36415; 80053; 81003; 81015; 85027; 86593; 93005; 93010

== ENCOUNTER 2018-10-01 08:34 | Inpatient (IN) | payer OTHER ==
[2018-10-01 09:21] VITALS: BMI 40.1
--- NOTE | 2018-10-01 10:00 | HP ---
CIWA Score Nausea/Vomitin Muscle Tremors: 2 Anxiety: 2 Agitation: 2 Paroxysmal Sweats: 1-Minimal Palms Moist Orientation: 0-Oriented Tacttile Disturbances: 1-Very Mild Itch/Numbness Auditory Disturbances: 1-Very Mild Visual Disturbances: 0-None Headache: 2-Mild CIWA-Ar Total Score: 13 - Admission Criteria OASAS Guidelines: Admission for Medically Managed Detox: Requires at least one of the followin. CIWA greater than 12 2. Seizures within the past 24 hours 3. Delirium tremens within the past 24 hours 4. Hallucinations within the past 24 hours 5. Acute intervention needed for co occurring medical disorder 6. Acute intervention needed for co occurring psychiatric disorder 7. Severe withdrawal that cannot be handled at a lower level of care (continued vomiting, continued diarrhea, abnormal vital signs) requiring intravenous medication and/or fluids 8. Admission ROS S - HPI Chief Complaint: i need help to stop drinking alcohol and cocaine Allergies/Adverse Reactions: Allergies Allergy/AdvReac Type Severity Reaction Status Date / Time Fish Containing Products Allergy Severe Verified 10/01/18 10:04 penicillin G Allergy Severe Swelling Verified 07/10/18 15:29 History of Present Illness: this 37 years old female with alcohol and cocaine dependence,seeking detox,also heroin abused,seeking detox, last treatment rehab at [facility] 07/10/18 to 07/27/18 had seizure 09/30/18 seen at [facility],clear to come in for detox asthma, history of hypoglycemia obesity s/p open gastric bypass in 2013 eczema longest period of sobriety 10 months Exam Limitations: No Limitations - Ebola screening Have you traveled outside of the country in the last 21 days: No Have you had contact with anyone from an Ebola affected area: No Have you been sick,other than usual withdrawal symptoms: No Do you have a fever: No - Review of Systems Constitutional: Loss of Appetite, Malaise, Night Sweats, Changes in sleep EENT: reports: Nose Congestion Respiratory: reports: No Symptoms reported, Other (history of asthma) Cardiac: reports: No Symptoms Reported GI: reports: Nausea, Poor Appetite, Abdominal cramping, Other (s/p open gastric by pass) : reports: No Symptoms Reported Musculoskeletal: reports: Back Pain, Muscle Pain Integumentary: reports: Dryness Neuro: reports: Headache, Tremors Endocrine: reports: No Symptoms Reported, Other (hsitory of hypoglycemia) Hematology: reports: No Symptoms Reported Psychiatric: reports: No Sypmtoms Reported, Judgement Intact, Mood/Affect Appropiate, Orientated x3, other (bipolar disorder) Patient History - Patient Medical History Hx Anemia: No Hx Asthma: Yes (on albuterol inhaler) Hx Chronic Obstructive Pulmonary Disease (COPD): No Hx Cancer: No Hx Cardiac Disorders: No Hx Congestive Heart Failure: No Hx Hypertension: No Hx Hypercholesterolemia: No Hx Pacemaker: No HX Cerebrovascular Accident: No Hx Seizures: Yes (last 09/30/18) Hx Dementia: No Hx Diabetes: No Hx Gastrointestinal Disorders: No Hx Liver Disease: No Hx Genitourinary Disorders: No Hx Sexually Transmitted Disorders: No Hx Renal Disease (ESRD): No Hx Thyroid Disease: No Hx Human Immunodeficiency Virus (HIV): No Hx Hepatitis C: No Hx Depression: Yes Hx Suicide Attempt: Yes (overdose in 08/20) Hx Bipolar Disorder: No Hx Schizophrenia: No Other Medical History: no suicidal,no homicidal - Patient Surgical History Past Surgical History: Yes Hx Section: Yes (2014) Anesthesia Reaction: No - PPD History Previous Implant?: Yes Documented Results: Negative w/proof Date: 07/13/18 Results: 0 mm PPD to be Administered?: No - Reproductive History Patient is a Female of Child Bearing Age (11 -55 yrs old): Yes Last Menstrual Period: 09/27/18 Patient : No - Smoking Cessation Smoking history: Current every day smoker Have you smoked in the past 12 months: Yes Aproximately how many cigarettes per day: 5 Cigars Per Day: 0 Hx Chewing Tobacco Use: No Initiated information on smoking cessation: Yes 'Breaking Loose' booklet given: 10/01/18 - Substance & Tx. History Hx Alcohol Use: Yes Hx Substance Use: Yes Substance Use Type: Alcohol, Cocaine Hx Substance Use Treatment: Yes (rab 07/10/18 to 07/27/18 [facility]) - Substances Abused Alcohol Route: Oral Frequency: Daily Amount used: 1 pint vodka Age of first use: 20 Date of Last Use: 09/30/18 Cocaine Route: Smoking Frequency: Daily Amount used: $200 Age of first use: 30 Date of Last Use: 10/01/18 Heroin Route: Inhalation Frequency: 1-2 times per week Amount used: 1/2 bag Age of first use: 37 Date of Last Use: 09/30/18 Family Disease History - Family Disease History Family Disease History: Other: Father (NO CONTACT), Mother (NO CONTACT), Brother (NO CONTACT) Admission Physical Exam [facility] - Vital Signs Vital Signs: Vital Signs - 24 hr 10/01/18 09:19 Temperature 98.4 F Pulse Rate 105 H Respiratory 20 Rate Blood Pressure 132/72 - Physical General Appearance: Yes: Moderate Distress, Obese, Tremorous, Irritable, Sweating, Anxious HEENTM: Yes: Normal ENT Inspection, TAWANDA, Pharynx Normal Respiratory: Yes: Lungs Clear, Normal Breath Sounds, No Respiratory Distress Neck: Yes: Within Normal Limits, Supple, Trachea in good position Breast: Yes: Breast Exam Deferred Cardiology: Yes: Tachycardia Abdominal: Yes: Within Normal Limits, Normal Bowel Sounds, Non Tender, Soft, Surgical Scar (s/p open gastric by pass) Genitourinary: Yes: Within Normal Limits Back: Yes: Muscle Spasm Extremities: Yes: Normal Range of Motion, Tremors Neurological: Yes: set up person II-XII NML intact, Alert, Motor Strength 5/5 Integumentary: Yes: Dry Lymphatic: Yes: Within Normal Limits - Diagnostic (1) Alcohol dependence with uncomplicated withdrawal Current Visit: Yes Status: Acute (2) Cocaine dependence, uncomplicated Current Visit: Yes Status: Chronic (3) Asthma Current Visit: No Status: Chronic Qualifiers: Asthma severity: unspecified severity Asthma persistence: unspecified Asthma complication type: unspecified Qualified Code(s): J45.909 - Unspecified asthma, uncomplicated (4) Bipolar disorder Current Visit: Yes Status: Chronic (5) Hypoglycemia Current Visit: Yes Status: Acute (6) Nicotine dependence Current Visit: Yes Status: Chronic Qualifiers: Nicotine product type: cigarettes Substance use status: in withdrawal Qualified Code(s): F17.213 - Nicotine dependence, cigarettes, with withdrawal Cleared for Admission [facility] - Detox or Rehab [facility] Level of Care: Medically Managed Detox Regimen/Protocol: Librium [facility] Breath Alcohol Content Breath Alcohol Content: 0 Urine Pregancy Test - Result Urine Test Results: Negative- NO Line Present Urine Drug Screen - Results Drug Screen Negative: No Urine Drug Screen Results: ALLEN-Cocaine, BAR-Barbiturates
[2018-10-01] MEDS ORDERED: ACETAMINOPHEN 325 MG TABLET (FP) PO PRN (10:28)
[2018-10-01] MEDS ORDERED: IBUPROFEN 400 MG TABLET (FP) PO PRN (10:28)
[2018-10-01] MEDS ORDERED: chlordiazePOXIDE HCL 25 MG CAPSULE PO PRN (10:28)
[2018-10-01] MEDS ORDERED: guaiFENesin/D-METHORPHAN HB 10 ML UNIT-DOSE CUPS PO PRN (10:28)
[2018-10-01] MEDS ORDERED: MENTHOL/PHENOL 1 EACH UD MM PRN (10:28)
[2018-10-01] MEDS ORDERED: P-EPHED 60MG/TRIPROLIDI 2.5MG TABLET PO PRN (10:28)
[2018-10-01] MEDS ORDERED: MAGNESIUM CITRATE 300 ML BOTTLE PO PRN (10:28)
[2018-10-01] MEDS ORDERED: hydrOXYzine PAMOATE 50 MG CAPSULE (FP) PO PRN (10:28)
[2018-10-01] MEDS ORDERED: MAGNESIUM HYDROX 2400MG/30ML ORAL SUSPENSION 30 ML CUP PO PRN (10:28)
[2018-10-01] MEDS ORDERED: LOPERAMIDE HCL 2 MG CAPSULE PO PRN (10:28)
[2018-10-01] MEDS ORDERED: ALBUTEROL SO4 8 GM HFA INHALER IH PRN (10:32)
[2018-10-01] MEDS: chlordiazePOXIDE HCL 25 MG CAPSULE PO SCH ×2 (18:24→22:27)
[2018-10-01 18:43] LABS: URINE APPEARANCE CLEAR; URINE BILIRUBIN NEGATIVE (<2.0 mg/dL); URINE COLOR YELLOW; URINE GLUCOSE (UA) NEGATIVE (NEGATIVE); URINE KETONE NEGATIVE (NEGATIVE); URINE LEUK ESTERASE NEGATIVE (NEGATIVE); URINE NITRITE NEGATIVE (NEGATIVE); URINE PROTEIN NEGATIVE (NEGATIVE); URINE UROBILINOGEN NEGATIVE mg/dL (0.2-1.0)
[2018-10-01] MEDS ORDERED: MELATONIN 5 MG TABLETS PO PRN (22:00)
[2018-10-01] MEDS: levETIRAcetam 500 MG TABLET (FP) PO SCH (22:23)
[2018-10-01] MEDS: THIAMINE HCL 100 MG TABLET (FP) PO SCH (22:28)
[2018-10-02] MEDS: chlordiazePOXIDE HCL 25 MG CAPSULE PO SCH ×5 (06:11→22:37)
[2018-10-02] MEDS: levETIRAcetam 500 MG TABLET (FP) PO SCH ×2 (10:59→22:36)
[2018-10-02] MEDS: PRENATAL VITAMINS W/ FOLIC ACID TABLET (FP) PO SCH ×2 (10:59→11:05)
[2018-10-02 11:22] LABS: HEMATOCRIT 29.2 % (32.4-45.2); HEMOGLOBIN 9.4 GM/dL (10.7-15.3); MCH 23.9 pg (25.7-33.7); MCHC 32.3 g/dl (32.0-36.0); MEAN CELL VOLUME 74.2 fl (80-96); PLATELET COUNT 255 K/MM3 (134-434); RBC 3.94 M/mm3 (3.60-5.2); RDW 30.8 % (11.6-15.6); WHITE BLOOD COUNT 8.6 K/mm3 (4.0-10.0)
[2018-10-02 11:24] LABS: ALBUMIN 3.4 g/dl (3.4-5.0); ALK PHOS 66 U/L (45-117); ANION GAP 12 MMOL/L (8-16); BILIRUBIN,TOTAL 0.5 mg/dL (0.2-1); BLOOD UREA NITROGEN 22 mg/dL (7-18); CALCIUM 8.4 mg/dL (8.5-10.1); CHLORIDE 104 mmol/L (98-107); CO2 23 mmol/L (21-32); CREATININE 0.8 mg/dL (0.55-1.3); GLUCOSE,RANDOM 71 mg/dL (74-106); SGOT/AST 33 U/L (15-37); SGPT/ALT 27 U/L (13-61); SODIUM 139 mmol/L (136-145); TOT PROT 6.8 g/dl (6.4-8.2)
--- NOTE | 2018-10-02 11:26 | CONSULT ---
[facility] Psychiatric Consult - Data Date of interview: 10/02/18 Admission source: [facility] Identifying data: Patient is a 37 year old single, mother of three, unemployed ( denies receiving financial assistance), and is currently homeless. This is one of multiple admissions for patient. Patient admitted to for alcohol dependence. Substance Abuse History: Smoking Cessation. Smoking history: Current every day smoker. Have you smoked in the past 12 months: Yes. Aproximately how many cigarettes per day: 5. Cigars Per Day: 0. Hx Chewing Tobacco Use: No. Initiated information on smoking cessation: Yes. 'Breaking Loose' booklet given : 10/01/18. - Substance & Tx. History. Hx Alcohol Use: Yes. Hx Substance Use : Yes. Substance Use Type: Alcohol, Cocaine. Hx Substance [facility]) Psychiatric History: Patient reports multiple psychiatric hospitalization, most recently one month ago at [facility] after overdosing on 25 pills of seroquel 200mg. Patient is also known to [facility]. Patient denies current outpatient psychiatric care. She receives her refills from various psychiatric emergency rooms. Diagnosis of Bipolar disorder. Patient was recently discharged from rehab on 07/27/18 and was prescribed seroquel 400mg BID + Gabapentin 600mg HS + Gabapentin 300mg daily + Celexa 30mg. She reports medication compliance although states she has not taken her medications for two days. Patient denies current suicidal and homicial ideation. Physical/Sexual Abuse/Trauma History: denies. Mental Status Exam - Mental Status Exam Alert and Oriented to: Time, Place, Person Cognitive Function: Good Patient Appearance: Well Groomed Mood: Euthymic Affect: Mood Congruent Patient Behavior: Cooperative Speech Pattern: Appropriate Voice Loudness: Normal Thought Process: Intact, Goal Oriented Hallucinations: Denies Suicidal Ideation: Denies Homicidal Ideation: Denies Insight/Judgement: Poor Sleep: Fair Appetite: Fair Muscle strength/Tone: Normal Gait/Station: Normal Psychiatric Findings - Problem List ([place] 1, 2,3) (1) Alcohol dependence with uncomplicated withdrawal Current Visit: Yes Status: Acute (2) Cocaine dependence, uncomplicated Current Visit: No Status: Acute (3) Substance induced mood disorder Current Visit: Yes Status: Acute (4) Mood disorder Current Visit: Yes Status: Chronic - Initial Treatment Plan Initial Treatment Plan: Psychoeducation provided. Detoxification in progress. Will order Celexa 30mg + Gabapentin 300mg daily + Gabapentin 600mg qhs + Seroquel 100mg (reduce dosage) + Seroquel 200mg (reduced dosage). Reduce dosages of seroquel ordered due to risk of falls and oversedation. Benefits and side effects discussed. Verbal consent given.
[2018-10-02] MEDS: GABAPENTIN 300 MG CAPSULE (FP) PO SCH ×2 (12:58→22:38)
[2018-10-02] MEDS: CITALOPRAM HYDROBROMIDE 10 MG TABLET (FP) PO SCH (12:59)
[2018-10-02] MEDS: QUEtiapine FUMARATE 100 MG TABLET (FP) PO SCH (13:02)
--- NOTE | 2018-10-02 13:59 | PN ---
S CIWA - CIWA Score Nausea/Vomitin-No Nausea/No Vomiting Muscle Tremors: 1-None Visible, but [place] Anxiety: 2 Agitation: 2 Paroxysmal Sweats: No Perspiration Orientation: 0-Oriented Tacttile Disturbances: 3-Moderate Itch/Numb/Burn Auditory Disturbances: 0-None Visual Disturbances: 0-None Headache: 2-Mild CIWA-Ar Total Score: 10 [facility] Progress Note (SOAP) Subjective: PATIENT ANXIOUS/RESTLESS. C/O HEADACHE AND NUMBNESS/TINGLING TO FEET. Objective: 10/02/18 14:00 Vital Signs Temperature 98.2 F 10/02/18 13:52 Pulse Rate 87 10/02/18 13:52 Respiratory Rate 16 10/02/18 13:52 Blood Pressure 102/51 L 10/02/18 13:52 O2 Sat by Pulse Oximetry (%) Laboratory Tests 10/01/18 10/01/18 10/02/18 10:18 17:30 05:55 WBC 8.6 RBC 3.94 Hgb 9.4 L Hct 29.2 L MCV 74.2 L MCH 23.9 L D MCHC 32.3 RDW 30.8 H Plt Count 255 MPV 11.0 Sodium Potassium Chloride Carbon Dioxide Anion Gap BUN Creatinine Creat Clearance w eGFR POC Glucometer 104 Random Glucose Calcium Total Bilirubin AST ALT Alkaline Phosphatase Total Protein Albumin Urine Color Yellow Urine Appearance Clear Urine pH 5.0 Ur Specific [place] 1.023 Urine Protein Negative Urine Glucose (UA) Negative Urine Ketones Negative Urine Blood Negative Urine Nitrite Negative Urine Bilirubin Negative Urine Urobilinogen Negative Ur Leukocyte Esterase Negative 10/02/18 05:55 WBC RBC Hgb Hct MCV MCH MCHC RDW Plt Count MPV Sodium 139 Potassium 4.0 Chloride 104 Carbon Dioxide 23 Anion Gap 12 BUN 22 H Creatinine 0.8 Creat Clearance w eGFR > 60 POC Glucometer Random Glucose 71 L Calcium 8.4 L Total Bilirubin 0.5 AST 33 ALT 27 Alkaline Phosphatase 66 Total Protein 6.8 Albumin 3.4 Urine Color Urine Appearance Urine pH Ur Specific [place] Urine Protein Urine Glucose (UA) Urine Ketones Urine Blood Urine Nitrite Urine Bilirubin Urine Urobilinogen Ur Leukocyte Esterase PE: ALERT AND ORIENTED X 3 SKIN WARM AND DRY EXT FULL ROM, TRACE EDEMA, +DRY SKIN, +TREMORS FELT AMB AD MALISSA ANXIOUS 10/02/18 14:04 Assessment: 10/02/18 14:04 WITHDRAWAL SX Plan: CONTINUE DETOX ENCOURAGE ORAL FLUIDS GABAPENTIN 100MG TID CONTINUE TO MONITOR
[2018-10-02] MEDS: QUEtiapine FUMARATE 200 MG TABLET PO SCH (22:36)
[2018-10-02] MEDS: THIAMINE HCL 100 MG TABLET (FP) PO SCH (22:37)
[2018-10-02] MEDS: MAG HYDROX/AL HYDROX/SIMETH 30 ML UNIT-DOSE CUP PO PRN (22:39)
[2018-10-03] MEDS: chlordiazePOXIDE HCL 25 MG CAPSULE PO SCH ×2 (05:44→10:25)
[2018-10-03] MEDS ORDERED: QUEtiapine FUMARATE 400 MG TABLET PO SCH (10:00)
[2018-10-03] MEDS: CITALOPRAM HYDROBROMIDE 10 MG TABLET (FP) PO SCH (10:24)
[2018-10-03] MEDS: QUEtiapine FUMARATE 100 MG TABLET (FP) PO SCH (10:24)
[2018-10-03] MEDS: PRENATAL VITAMINS W/ FOLIC ACID TABLET (FP) PO SCH (10:24)
[2018-10-03] MEDS: levETIRAcetam 500 MG TABLET (FP) PO SCH ×2 (10:24→22:04)
[2018-10-03] MEDS: GABAPENTIN 300 MG CAPSULE (FP) PO SCH ×2 (10:30→22:03)
--- NOTE | 2018-10-03 11:25 | PN ---
[facility] CIWA - CIWA Score Nausea/Vomitin-Mild Nausea/No Vomiting Muscle Tremors: 3 Anxiety: 4-Mod. Anxious/Guarded Agitation: 1-Slight > Activity Paroxysmal Sweats: No Perspiration Orientation: 0-Oriented Tacttile Disturbances: 0-None Auditory Disturbances: 0-None Visual Disturbances: 0-None Headache: 0-None Present CIWA-Ar Total Score: 9 S Progress Note (SOAP) Subjective: C/o nausea w/o vomiting. States had 2 episodes of watery brownish/blackish diarrhea this am. C/o anxiety. Objective: A&O x 3. Obese abd S/NT. BS +. Lungs CTA. MIld tremors of hands felt. Guarded and resistant to answering questions. Deformities of legs and ankles w/ steady gait. Walking bare footed. Vital Signs 10/03/18 10/03/18 10/03/18 03:30 06:00 10:33 Temperature 97.9 F 99.0 F Pulse Rate 70 87 Respiratory 18 18 Rate Blood Pressure 100/59 L 101/54 L Laboratory Last Values WBC 8.6 K/mm3 (4.0-10.0) 10/02/18 05:55 RBC 3.94 M/mm3 (3.60-5.2) 10/02/18 05:55 Hgb 9.4 GM/dL (10.7-15.3) L 10/02/18 05:55 Hct 29.2 % (32.4-45.2) L 10/02/18 05:55 MCV 74.2 fl (80-96) L 10/02/18 05:55 MCH 23.9 pg (25.7-33.7) L D 10/02/18 05:55 MCHC 32.3 g/dl (32.0-36.0) 10/02/18 05:55 RDW 30.8 % (11.6-15.6) H 10/02/18 05:55 Plt Count 255 K/MM3 (134-434) 10/02/18 05:55 MPV 11.0 fl (7.5-11.1) 10/02/18 05:55 Sodium 139 mmol/L (136-145) 10/02/18 05:55 Potassium 4.0 mmol/L (3.5-5.1) 10/02/18 05:55 Chloride 104 mmol/L (98-107) 10/02/18 05:55 Carbon Dioxide 23 mmol/L (21-32) 10/02/18 05:55 Anion Gap 12 MMOL/L (8-16) 10/02/18 05:55 BUN 22 mg/dL (7-18) H 10/02/18 05:55 Creatinine 0.8 mg/dL (0.55-1.3) 10/02/18 05:55 Creat Clearance w eGFR > 60 (>60) 10/02/18 05:55 POC Glucometer 104 UNITS (80-120) 10/01/18 10:18 Random Glucose 71 mg/dL (74-106) L 10/02/18 05:55 Calcium 8.4 mg/dL (8.5-10.1) L 10/02/18 05:55 Total Bilirubin 0.5 mg/dL (0.2-1) 10/02/18 05:55 AST 33 U/L (15-37) 10/02/18 05:55 ALT 27 U/L (13-61) 10/02/18 05:55 Alkaline Phosphatase 66 U/L (45-117) 10/02/18 05:55 Total Protein 6.8 g/dl (6.4-8.2) 10/02/18 05:55 Albumin 3.4 g/dl (3.4-5.0) 10/02/18 05:55 Urine Color Yellow 10/01/18 17:30 Urine Appearance Clear 10/01/18 17:30 Urine pH 5.0 (5.0-8.0) 10/01/18 17:30 Ur Specific [place] 1.023 (1.010-1.035) 10/01/18 17:30 Urine Protein Negative (NEGATIVE) 10/01/18 17:30 Urine Glucose (UA) Negative (NEGATIVE) 10/01/18 17:30 Urine Ketones Negative (NEGATIVE) 10/01/18 17:30 Urine Blood Negative (NEGATIVE) 10/01/18 17:30 Urine Nitrite Negative (NEGATIVE) 10/01/18 17:30 Urine Bilirubin Negative (<2.0 mg/dL) 10/01/18 17:30 Urine Urobilinogen Negative mg/dL (0.2-1.0) 10/01/18 17:30 Ur Leukocyte Esterase Negative (NEGATIVE) 10/01/18 17:30 Labs reviewed. Assessment: Withdrawal symptoms Decreased HGB/HCT Leg and ankle deformity Plan: Continue detox. Add iron supplements Instructed to wear safety socks when out of bed. Encouraged to increase water intake.
[2018-10-03] MEDS: FERROUS SO4 325 MG TABLET (FP) PO SCH (12:35)
[2018-10-03] MEDS: chlordiazePOXIDE 5 MG CAPSULE PO SCH ×2 (17:30→22:04)
[2018-10-03] MEDS: MAG HYDROX/AL HYDROX/SIMETH 30 ML UNIT-DOSE CUP PO PRN (17:30)
[2018-10-03] MEDS: THIAMINE HCL 100 MG TABLET (FP) PO SCH (22:04)
[2018-10-03] MEDS: QUEtiapine FUMARATE 200 MG TABLET PO SCH (22:04)
[2018-10-04] MEDS: chlordiazePOXIDE 5 MG CAPSULE PO SCH ×2 (05:15→10:21)
[2018-10-04] MEDS: MAG HYDROX/AL HYDROX/SIMETH 30 ML UNIT-DOSE CUP PO PRN ×2 (05:16→22:09)
[2018-10-04] MEDS: PRENATAL VITAMINS W/ FOLIC ACID TABLET (FP) PO SCH (10:20)
[2018-10-04] MEDS: CITALOPRAM HYDROBROMIDE 10 MG TABLET (FP) PO SCH (10:20)
[2018-10-04] MEDS: QUEtiapine FUMARATE 100 MG TABLET (FP) PO SCH (10:21)
[2018-10-04] MEDS: levETIRAcetam 500 MG TABLET (FP) PO SCH ×2 (10:21→22:01)
[2018-10-04] MEDS: GABAPENTIN 300 MG CAPSULE (FP) PO SCH ×2 (10:21→22:02)
[2018-10-04] MEDS: FERROUS SO4 325 MG TABLET (FP) PO SCH (10:23)
--- NOTE | 2018-10-04 12:42 | PN ---
[facility] Progress Note (SOAP) Subjective: feeling better no tremor no gi distress sleep better at night Objective: 10/04/18 12:40 Vital Signs Temperature 98.1 F 10/04/18 10:23 Pulse Rate 82 10/04/18 10:23 Respiratory Rate 18 10/04/18 10:23 Blood Pressure 116/64 10/04/18 10:23 O2 Sat by Pulse Oximetry (%) Laboratory Last Values WBC 8.6 K/mm3 (4.0-10.0) 10/02/18 05:55 RBC 3.94 M/mm3 (3.60-5.2) 10/02/18 05:55 Hgb 9.4 GM/dL (10.7-15.3) L 10/02/18 05:55 Hct 29.2 % (32.4-45.2) L 10/02/18 05:55 MCV 74.2 fl (80-96) L 10/02/18 05:55 MCH 23.9 pg (25.7-33.7) L D 10/02/18 05:55 MCHC 32.3 g/dl (32.0-36.0) 10/02/18 05:55 RDW 30.8 % (11.6-15.6) H 10/02/18 05:55 Plt Count 255 K/MM3 (134-434) 10/02/18 05:55 MPV 11.0 fl (7.5-11.1) 10/02/18 05:55 Sodium 139 mmol/L (136-145) 10/02/18 05:55 Potassium 4.0 mmol/L (3.5-5.1) 10/02/18 05:55 Chloride 104 mmol/L (98-107) 10/02/18 05:55 Carbon Dioxide 23 mmol/L (21-32) 10/02/18 05:55 Anion Gap 12 MMOL/L (8-16) 10/02/18 05:55 BUN 22 mg/dL (7-18) H 10/02/18 05:55 Creatinine 0.8 mg/dL (0.55-1.3) 10/02/18 05:55 Creat Clearance w eGFR > 60 (>60) 10/02/18 05:55 POC Glucometer 104 UNITS (80-120) 10/01/18 10:18 Random Glucose 71 mg/dL (74-106) L 10/02/18 05:55 Calcium 8.4 mg/dL (8.5-10.1) L 10/02/18 05:55 Total Bilirubin 0.5 mg/dL (0.2-1) 10/02/18 05:55 AST 33 U/L (15-37) 10/02/18 05:55 ALT 27 U/L (13-61) 10/02/18 05:55 Alkaline Phosphatase 66 U/L (45-117) 10/02/18 05:55 Total Protein 6.8 g/dl (6.4-8.2) 10/02/18 05:55 Albumin 3.4 g/dl (3.4-5.0) 10/02/18 05:55 Urine Color Yellow 10/01/18 17:30 Urine Appearance Clear 10/01/18 17:30 Urine pH 5.0 (5.0-8.0) 10/01/18 17:30 Ur Specific [place] 1.023 (1.010-1.035) 10/01/18 17:30 Urine Protein Negative (NEGATIVE) 10/01/18 17:30 Urine Glucose (UA) Negative (NEGATIVE) 10/01/18 17:30 Urine Ketones Negative (NEGATIVE) 10/01/18 17:30 Urine Blood Negative (NEGATIVE) 10/01/18 17:30 Urine Nitrite Negative (NEGATIVE) 10/01/18 17:30 Urine Bilirubin Negative (<2.0 mg/dL) 10/01/18 17:30 Urine Urobilinogen Negative mg/dL (0.2-1.0) 10/01/18 17:30 Ur Leukocyte Esterase Negative (NEGATIVE) 10/01/18 17:30 RPR Titer Nonreactive (NONREACTIVE) 10/02/18 05:55 lab noted Assessment: 10/04/18 12:41 mild withdrawal sx Plan: medically supervised detox
[2018-10-04] MEDS: chlordiazePOXIDE HCL 10 MG CAPSULE PO SCH ×2 (18:04→22:02)
[2018-10-04] MEDS: THIAMINE HCL 100 MG TABLET (FP) PO SCH (22:01)
[2018-10-04] MEDS: QUEtiapine FUMARATE 200 MG TABLET PO SCH (22:01)
[2018-10-05] MEDS: chlordiazePOXIDE HCL 10 MG CAPSULE PO SCH ×2 (07:07→10:30)
[2018-10-05] MEDS: PRENATAL VITAMINS W/ FOLIC ACID TABLET (FP) PO SCH (10:30)
[2018-10-05] MEDS: CITALOPRAM HYDROBROMIDE 10 MG TABLET (FP) PO SCH (10:30)
[2018-10-05] MEDS: QUEtiapine FUMARATE 100 MG TABLET (FP) PO SCH (10:30)
[2018-10-05] MEDS: FERROUS SO4 325 MG TABLET (FP) PO SCH (10:30)
[2018-10-05] MEDS: levETIRAcetam 500 MG TABLET (FP) PO SCH (10:30)
[2018-10-05] MEDS: GABAPENTIN 300 MG CAPSULE (FP) PO SCH (10:30)
--- NOTE | 2018-10-05 11:00 | DS ---
[facility] Detox Discharge Summary Admission Date: 10/01/18 Discharge Date: 10/05/18 - History Present History: Alcohol Dependence Additional Comments: 37 years old female admitted on 10/01/18 for alcohol withdrawal sx alert oriented x 3 no acute distress completed alcohol detox regimen tolerated well aftercare [facility] - Physical Exam Results Vital Signs: Vital Signs Temperature 97.7 F 10/05/18 09:04 Pulse Rate 79 10/05/18 09:04 Respiratory Rate 18 10/05/18 09:04 Blood Pressure 95/52 L 10/05/18 09:04 O2 Sat by Pulse Oximetry (%) Pertinent Admission Physical Exam Findings: alcohol withdrawal sx Vital Signs Temperature 97.7 F 10/05/18 09:04 Pulse Rate 79 10/05/18 09:04 Respiratory Rate 18 10/05/18 09:04 Blood Pressure 95/52 L 10/05/18 09:04 O2 Sat by Pulse Oximetry (%) Laboratory Last Values WBC 8.6 K/mm3 (4.0-10.0) 10/02/18 05:55 RBC 3.94 M/mm3 (3.60-5.2) 10/02/18 05:55 Hgb 9.4 GM/dL (10.7-15.3) L 10/02/18 05:55 Hct 29.2 % (32.4-45.2) L 10/02/18 05:55 MCV 74.2 fl (80-96) L 10/02/18 05:55 MCH 23.9 pg (25.7-33.7) L D 10/02/18 05:55 MCHC 32.3 g/dl (32.0-36.0) 10/02/18 05:55 RDW 30.8 % (11.6-15.6) H 10/02/18 05:55 Plt Count 255 K/MM3 (134-434) 10/02/18 05:55 MPV 11.0 fl (7.5-11.1) 10/02/18 05:55 Sodium 139 mmol/L (136-145) 10/02/18 05:55 Potassium 4.0 mmol/L (3.5-5.1) 10/02/18 05:55 Chloride 104 mmol/L (98-107) 10/02/18 05:55 Carbon Dioxide 23 mmol/L (21-32) 10/02/18 05:55 Anion Gap 12 MMOL/L (8-16) 10/02/18 05:55 BUN 22 mg/dL (7-18) H 10/02/18 05:55 Creatinine 0.8 mg/dL (0.55-1.3) 10/02/18 05:55 Creat Clearance w eGFR > 60 (>60) 10/02/18 05:55 POC Glucometer 104 UNITS (80-120) 10/01/18 10:18 Random Glucose 71 mg/dL (74-106) L 10/02/18 05:55 Calcium 8.4 mg/dL (8.5-10.1) L 10/02/18 05:55 Total Bilirubin 0.5 mg/dL (0.2-1) 10/02/18 05:55 AST 33 U/L (15-37) 10/02/18 05:55 ALT 27 U/L (13-61) 10/02/18 05:55 Alkaline Phosphatase 66 U/L (45-117) 10/02/18 05:55 Total Protein 6.8 g/dl (6.4-8.2) 10/02/18 05:55 Albumin 3.4 g/dl (3.4-5.0) 10/02/18 05:55 Urine Color Yellow 10/01/18 17:30 Urine Appearance Clear 10/01/18 17:30 Urine pH 5.0 (5.0-8.0) 10/01/18 17:30 Ur Specific [place] 1.023 (1.010-1.035) 10/01/18 17:30 Urine Protein Negative (NEGATIVE) 10/01/18 17:30 Urine Glucose (UA) Negative (NEGATIVE) 10/01/18 17:30 Urine Ketones Negative (NEGATIVE) 10/01/18 17:30 Urine Blood Negative (NEGATIVE) 10/01/18 17:30 Urine Nitrite Negative (NEGATIVE) 10/01/18 17:30 Urine Bilirubin Negative (<2.0 mg/dL) 10/01/18 17:30 Urine Urobilinogen Negative mg/dL (0.2-1.0) 10/01/18 17:30 Ur Leukocyte Esterase Negative (NEGATIVE) 10/01/18 17:30 Levetiracetam 12.5 MCG/ML (10.0-40.0) 10/01/18 11:50 RPR Titer Nonreactive (NONREACTIVE) 10/02/18 05:55 lab noted - Treatment Hospital Course: Detox Protocol Followed, Detoxed Safely, Responded well, Discharged Condition Good, Rehab Referral Accepted Patient has Accepted a Rehab Referral to: [facility] - Medication Discharge Medications: Ambulatory Orders Citalopram Hydrobromide [Celexa -] 30 mg PO DAILY #90 tablet 07/27/18 Gabapentin [Neurontin -] 300 mg PO DAILY #30 capsule 07/27/18 Gabapentin [Neurontin -] 600 mg PO HS #60 capsule 07/27/18 Quetiapine Fumarate [Seroquel -] 400 mg PO BID #60 tablet 07/27/18 Quetiapine Fumarate [Seroquel -] 200 mg PO HS 10/02/18 Albuterol Sulfate Inhaler - [Ventolin HFA Inhaler -] 2 inh PO Q4H PRN #1 inhaler 10/04/18 levETIRAcetam [Keppra -] 500 mg PO BID #60 tablet 10/04/18 - Diagnosis (1) Alcohol dependence with uncomplicated withdrawal Current Visit: Yes Status: Acute (2) Seizure Current Visit: Yes Status: Chronic (3) Substance induced mood disorder Current Visit: Yes Status: Suspected (4) Anemia Current Visit: Yes Status: Chronic Qualifiers: Anemia type: iron deficiency Iron deficiency anemia type: unspecified iron deficiency Qualified Code(s): D50.9 - Iron deficiency anemia, unspecified (5) Nicotine dependence Current Visit: Yes Status: Acute Qualifiers: Nicotine product type: cigarettes Substance use status: in withdrawal Qualified Code(s): F17.213 - Nicotine dependence, cigarettes, with withdrawal (6) Asthma Current Visit: Yes Status: Chronic Qualifiers: Asthma severity: mild Asthma persistence: intermittent Asthma complication type: with status asthmaticus Qualified Code(s): J45.22 - Mild intermittent asthma with status asthmaticus - AMA Did Patient Leave Against Medical Advice: No
[2018-10-05 13:49] VITALS: BP 99/52; PULSE 71; TEMP 98.2
== END 2018-10-05 15:53 | disposition other institution (70) | DRG 774 ==
LOC: YASAS 08:34 → Y6N 10:26
PROC: HZ2ZZZZ Detoxification Services for Substance Abuse Treatment (ICD-10-PCS; principal; 2018-10-01)
DX: F10.230 Alcohol dependence with withdrawal, uncomplicated (principal); F14.20 Cocaine dependence, uncomplicated; F17.213 Nicotine dependence, cigarettes, with withdrawal; F31.9 Bipolar disorder, unspecified; F19.24 Other psychoactive substance dependence with psychoactive substance-induced mood disorder; F39 Unspecified mood [affective] disorder; D50.9 Iron deficiency anemia, unspecified; E16.2 Hypoglycemia, unspecified; J45.22 Mild intermittent asthma with status asthmaticus; R56.9 Unspecified convulsions; M21.869 Other specified acquired deformities of unspecified lower leg; E66.9 Obesity, unspecified; Z68.41 Body mass index [BMI] 40.0-44.9, adult; Z88.0 Allergy status to penicillin; Z91.013 Allergy to seafood; Z59.0 Homelessness
CPT/HCPCS: 36415; 80053; 80177; 81003; 82962; 85027; 86593

== ENCOUNTER 2018-10-05 16:48 | Inpatient (IN) | payer OTHER ==
--- NOTE | 2018-10-05 13:04 | HP ---
JAYLYN RODRIGUEZ Rehab Assess/Revision - Admission History Admitted to Rehab from: [facility] Date of Admission to Rehab: 10/05/18 - Findings Detox History & Physical reviewed: Yes Concur with findings: Yes Comments/Additional Findings: transferred from detox to rehab admission as per protocol Inpatient Rehab Admission - Initial Determination Are CD services needed?: Yes Free of communicable disease: Yes Not in need of hospitalization: Yes - Rehab Admission Criteria Previous failed treatment: Yes Poor recovery environment: Yes Comorbidities: Yes Lacks judgement: No Patient is meeting Inpatient Rehab admission criteria:: Yes
[~2018-10-05 16:48] MED LIST: ACETAMINOPHEN 325 MG TABLET (FP) PO PRN; ALBUTEROL SO4 8 GM HFA INHALER IH PRN; LOPERAMIDE HCL 2 MG CAPSULE PO PRN; MAGNESIUM CITRATE 300 ML BOTTLE PO PRN; MAGNESIUM HYDROX 2400MG/30ML ORAL SUSPENSION 30 ML CUP PO PRN; MENTHOL/PHENOL 1 EACH UD MM PRN; NICOTINE 14 MG/24 HOURS TOPICAL PATCH TD PRN; NICOTINE POLACRILEX 2 MG GUM BUC PRN; P-EPHED 60MG/TRIPROLIDI 2.5MG TABLET PO PRN; guaiFENesin/D-METHORPHAN HB 10 ML UNIT-DOSE CUPS PO PRN
[2018-10-05] MEDS: GABAPENTIN 300 MG CAPSULE (FP) PO SCH (22:10)
[2018-10-05] MEDS: THIAMINE HCL 100 MG TABLET (FP) PO SCH (22:10)
[2018-10-05] MEDS: levETIRAcetam 500 MG TABLET (FP) PO SCH (22:11)
[2018-10-05] MEDS: MAG HYDROX/AL HYDROX/SIMETH 30 ML UNIT-DOSE CUP PO PRN (22:11)
[2018-10-05] MEDS: MELATONIN 5 MG TABLETS PO PRN (22:11)
--- NOTE | 2018-10-06 06:21 | HP ---
Psychiatrist Admission - Data Date of interview: 10/06/18 Admission source: [facility] Identifying data: This is the third [facility] admission for this 37 years old single female, mother of 3 children, unemployed on food stamp, homeless Medical History: Significant for bronchial asthma, seizure disorder, eczema, obesity, history of gastric bypass in 2012 and x3 in 2014. Smokes 5 cigarettes daily Psychiatric History: Patient reports that she was diagnosed with Bipolar Disorder at age 18. Reports multiple psychiatric hospitalizations at [facility] and most recently one month ago at [facility] after overdosing on 25 pills of Seroquel 200mg each. Patient denies current outpatient psychiatric care. Reports that she received OPD care at [facility] in the past but now goes to [facility] ED there for medication refills. Reports taking Seroquel 400 g po HS, Gabapentin 300 mg daily & 600 mg HS and Lexapro 30 mg po daily. She saw ROHAN Obando on 10/02/18 while in detox and she was prescribed Seroquel 100 mg daily & 200 mg HS, Gabapentin 300 mg daily & 600 mg HS and Lexapro 30 mg po daily. Patient reports multiple previous suicidal attempts by overdose on pills and self-mutilation. Most recent was a month ago when she was admitted to [facility] for ingesting 25 tablets of Seroquel 200 mg each. At present, denies experiencing psychotic, manic or depreesive symptoms, S/H ideations Physical/Sexual Abuse/Trauma History: Denies history of emotional, physical or sexual abuse as well as DV relationship. No service Additional Comment: Denies criminal history Vital Signs: Vital Signs - 24 hr 10/06/18 10/06/18 00:30 03:30 Respiratory 18 18 Rate Allergies/Adverse Reactions: Allergies Allergy/AdvReac Type Severity Reaction Status Date / Time Fish Containing Products Allergy Severe Verified 10/01/18 10:04 penicillin G Allergy Severe Swelling Verified 07/10/18 15:29 Date of last physical exam: 10/01/18 Concur with the findings of this exam: Yes - Substance Abuse/Tx History Hx Alcohol Use: Yes Hx Substance Use: Yes Substance Use Type: Alcohol (Started drinking alcohol at age 20, consumes one pint of vodka daily. Last drank on 09/30/18), Cocaine (Started smoking crack cocaine at age 30, consumes $200 worth daily. Last smoked on 10/01/18), Heroin ( Started using heroin at age37, consumes half a bag 1-2 weekly. Last used on ) Hx Substance Use Treatment: Yes (One recent inpt detox & 2 previous inpt rehab admissions @ [facility]) Mental Status Exam - Mental Status Exam Alert and Oriented to: Time, Place, Person Cognitive Function: Fair Patient Appearance: Well Groomed Mood: Hopeful, Euthymic Patient Behavior: Cooperative Speech Pattern: Clear Voice Loudness: Normal Thought Process: Intact, Goal Oriented Thought Disorder: Not Present Hallucinations: Denies Suicidal Ideation: Denies Homicidal Ideation: Denies Insight/Judgement: Fair Sleep: Poorly Appetite: Good Muscle strength/Tone: Normal Gait/Station: Normal Psychiatric Findings - Problem List ([place] 1, 2,3) (1) Alcohol dependence Current Visit: Yes Status: Acute (2) Opioid dependence Current Visit: Yes Status: Acute (3) Cocaine dependence Current Visit: No Status: Acute (4) Nicotine dependence Current Visit: No Status: Chronic Qualifiers: Nicotine product type: cigarettes Substance use status: in withdrawal Qualified Code(s): F17.213 - Nicotine dependence, cigarettes, with withdrawal (5) Bipolar disorder Current Visit: No Status: Chronic (6) Substance-induced sleep disorder Current Visit: Yes Status: Acute (7) Anemia Current Visit: No Status: Chronic Qualifiers: Anemia type: iron deficiency Iron deficiency anemia type: unspecified iron deficiency Qualified Code(s): D50.9 - Iron deficiency anemia, unspecified (8) Asthma Current Visit: No Status: Chronic Qualifiers: Asthma severity: mild Asthma persistence: intermittent Asthma complication type: with status asthmaticus Qualified Code(s): J45.22 - Mild intermittent asthma with status asthmaticus (9) Seizure Current Visit: No Status: Chronic (10) Obesity Current Visit: Yes Status: Chronic - Initial Treatment Plan Initial Treatment Plan: 1) Continue Gabapentin 300 mg daily & 600 mg HS, Lexapro 30 mg po daily. 2) Start Seroquel 400 mg HS. 3) Monitor progress
[2018-10-06] MEDS: GABAPENTIN 300 MG CAPSULE (FP) PO SCH ×2 (11:00→21:07)
[2018-10-06] MEDS: levETIRAcetam 500 MG TABLET (FP) PO SCH ×2 (11:00→21:07)
[2018-10-06] MEDS: PRENATAL VITAMINS W/ FOLIC ACID TABLET (FP) PO SCH (11:11)
[2018-10-06] MEDS: THIAMINE HCL 100 MG TABLET (FP) PO SCH (21:07)
[2018-10-06] MEDS: MELATONIN 5 MG TABLETS PO PRN (21:11)
[2018-10-06] MEDS ORDERED: QUEtiapine FUMARATE 300 MG TABLET PO SCH (22:00)
[2018-10-07] MEDS: QUEtiapine FUMARATE 400 MG TABLET PO SCH ×2 (00:03→21:14)
[2018-10-07] MEDS ORDERED: QUEtiapine FUMARATE 300 MG TABLET PO SCH (10:00)
[2018-10-07] MEDS: PRENATAL VITAMINS W/ FOLIC ACID TABLET (FP) PO SCH (10:12)
[2018-10-07] MEDS: ESCITALOPRAM OXALATE 10 MG TABLET (FP) PO SCH (10:12)
[2018-10-07] MEDS: GABAPENTIN 300 MG CAPSULE (FP) PO SCH ×2 (10:13→21:14)
[2018-10-07] MEDS: levETIRAcetam 500 MG TABLET (FP) PO SCH ×2 (10:13→21:14)
[2018-10-07] MEDS: THIAMINE HCL 100 MG TABLET (FP) PO SCH (21:59)
[2018-10-08] MEDS: ESCITALOPRAM OXALATE 10 MG TABLET (FP) PO SCH (10:12)
[2018-10-08] MEDS: levETIRAcetam 500 MG TABLET (FP) PO SCH ×2 (10:12→21:34)
[2018-10-08] MEDS: PRENATAL VITAMINS W/ FOLIC ACID TABLET (FP) PO SCH (10:12)
[2018-10-08] MEDS: GABAPENTIN 300 MG CAPSULE (FP) PO SCH ×2 (10:12→21:34)
--- NOTE | 2018-10-08 10:26 | PN ---
[facility] Progress Note Note: Patient requests to have Seroquel ordered 400 mg po BID as she was taking it prior to admission. Though in past admissions in this facility she was prescribed Seroquel 400m mg BID but last script filled for that dosage was back in July [address] Conde. Seroquel dosage will be adjusted to 400 mg po BID
[2018-10-08] MEDS: QUEtiapine FUMARATE 400 MG TABLET PO SCH ×2 (11:03→21:33)
[2018-10-08] MEDS: MAG HYDROX/AL HYDROX/SIMETH 30 ML UNIT-DOSE CUP PO PRN (19:29)
[2018-10-08] MEDS: THIAMINE HCL 100 MG TABLET (FP) PO SCH (21:33)
[2018-10-09] MEDS: MAG HYDROX/AL HYDROX/SIMETH 30 ML UNIT-DOSE CUP PO PRN (01:47)
[2018-10-09] MEDS: QUEtiapine FUMARATE 400 MG TABLET PO SCH ×2 (10:15→21:51)
[2018-10-09] MEDS: GABAPENTIN 300 MG CAPSULE (FP) PO SCH ×2 (10:15→21:51)
[2018-10-09] MEDS: levETIRAcetam 500 MG TABLET (FP) PO SCH ×2 (10:15→21:51)
[2018-10-09] MEDS: ESCITALOPRAM OXALATE 10 MG TABLET (FP) PO SCH (10:16)
[2018-10-09] MEDS: PRENATAL VITAMINS W/ FOLIC ACID TABLET (FP) PO SCH (10:16)
[2018-10-09] MEDS: THIAMINE HCL 100 MG TABLET (FP) PO SCH (21:51)
[2018-10-10] MEDS: QUEtiapine FUMARATE 400 MG TABLET PO SCH ×2 (10:27→21:41)
[2018-10-10] MEDS: ESCITALOPRAM OXALATE 10 MG TABLET (FP) PO SCH (10:27)
[2018-10-10] MEDS: levETIRAcetam 500 MG TABLET (FP) PO SCH ×2 (10:27→21:41)
[2018-10-10] MEDS: GABAPENTIN 300 MG CAPSULE (FP) PO SCH ×2 (10:27→21:41)
[2018-10-10] MEDS: PRENATAL VITAMINS W/ FOLIC ACID TABLET (FP) PO SCH (10:28)
[2018-10-10] MEDS: THIAMINE HCL 100 MG TABLET (FP) PO SCH (21:41)
[2018-10-10] MEDS: MAG HYDROX/AL HYDROX/SIMETH 30 ML UNIT-DOSE CUP PO PRN (21:42)
[2018-10-11] MEDS: levETIRAcetam 500 MG TABLET (FP) PO SCH ×2 (10:13→21:45)
[2018-10-11] MEDS: QUEtiapine FUMARATE 400 MG TABLET PO SCH (10:14)
[2018-10-11] MEDS: GABAPENTIN 300 MG CAPSULE (FP) PO SCH ×2 (10:14→21:45)
[2018-10-11] MEDS: ESCITALOPRAM OXALATE 10 MG TABLET (FP) PO SCH (10:14)
[2018-10-11] MEDS: PRENATAL VITAMINS W/ FOLIC ACID TABLET (FP) PO SCH (10:14)
[2018-10-11] MEDS: MAG HYDROX/AL HYDROX/SIMETH 30 ML UNIT-DOSE CUP PO PRN ×2 (10:15→21:47)
[2018-10-11] MEDS: THIAMINE HCL 100 MG TABLET (FP) PO SCH (21:45)
[2018-10-11] MEDS: QUEtiapine FUMARATE 200 MG TABLET PO SCH (21:46)
[2018-10-12 06:59] VITALS: BP 103/70; PULSE 73; TEMP 97.9
[2018-10-12] MEDS: MAG HYDROX/AL HYDROX/SIMETH 30 ML UNIT-DOSE CUP PO PRN ×2 (10:24→21:20)
[2018-10-12] MEDS: levETIRAcetam 500 MG TABLET (FP) PO SCH ×2 (10:25→21:19)
[2018-10-12] MEDS: GABAPENTIN 300 MG CAPSULE (FP) PO SCH ×2 (10:25→21:19)
[2018-10-12] MEDS: QUEtiapine FUMARATE 200 MG TABLET PO SCH ×2 (10:25→21:19)
[2018-10-12] MEDS: ESCITALOPRAM OXALATE 10 MG TABLET (FP) PO SCH (10:25)
[2018-10-12] MEDS: PRENATAL VITAMINS W/ FOLIC ACID TABLET (FP) PO SCH (10:25)
[2018-10-12] MEDS: IBUPROFEN 400 MG TABLET (FP) PO PRN ×2 (11:07→21:20)
[2018-10-12] MEDS: THIAMINE HCL 100 MG TABLET (FP) PO SCH (21:22)
--- NOTE | 2018-10-13 08:54 | PN ---
Psychiatric Progress Note Vital Signs: Vital Signs Period Temp Pulse Resp BP Sys/[place] Pulse Ox Last 24 Hr Date of Session: 10/13/18 Chief Complaint:: "Discharge HPI: Patient admitted to [facility] for alcohol and opioid dependence. ROS: Significant for bronchial asthma, seizure disorder, eczema, obesity, history of gastric bypass in 2012 and x3 in 2014 Current Medications: Active Medications Generic Name Dose Route Start Last Admin Trade Name Freq PRN Reason Stop Dose Admin Acetaminophen 650 mg 10/05/18 13:04 Tylenol - PO Q4H PRN FEVER Al Hydroxide/Mg Hydroxide 30 ml 10/05/18 13:04 10/12/18 21:20 Mylanta Oral Suspension - PO 30 ml Q6H PRN Administration DYSPEPSIA Albuterol Sulfate 2 puff 10/05/18 13:26 Ventolin Hfa Inhaler - IH Q4H PRN ASTHMA Escitalopram Oxalate 30 mg 10/07/18 10:00 10/12/18 10:25 Lexapro - PO 30 mg DAILY CHARLENE Administration Eucalyptus/Menthol/Phenol/Sorbitol 1 each 10/05/18 13:04 Cepastat Lozenge - MM Q4H PRN SORE THROAT Gabapentin 300 mg 10/06/18 10:00 10/12/18 10:25 Neurontin - PO 300 mg DAILY CHARLENE Administration Gabapentin 600 mg 10/05/18 22:00 10/12/18 21:19 Neurontin - PO 600 mg HS CHARLENE Administration Guaifenesin 10 ml 10/05/18 13:04 Robitussin Dm - PO Q6H PRN COUGH Ibuprofen 400 mg 10/05/18 13:04 10/12/18 21:20 Motrin - PO 400 mg Q6H PRN Administration Pain Level 4-6 Levetiracetam 500 mg 10/05/18 22:00 10/12/18 21:19 Keppra - PO 500 mg BID CHARLENE Administration Loperamide HCl 4 mg 10/05/18 13:04 Imodium - PO Q6H PRN DIARRHEA Magnesium Citrate 300 ml 10/05/18 13:04 Citroma - PO Q48H PRN CONSTIPATION Magnesium Hydroxide 30 ml 10/05/18 13:04 Milk Of Magnesia - PO DAILY PRN CONSTIPATION Melatonin 5 mg 10/05/18 22:00 10/06/18 21:11 Melatonin PO 5 mg HS PRN Administration INSOMNIA Nicotine 14 mg 10/05/18 13:04 Nicoderm Patch - TD DAILY PRN WITHDRAWAL(CONT SUBST) Nicotine Polacrilex 2 mg 10/05/18 13:04 Nicorette Gum - BUC Q2H PRN NICOTINE REPLACEMENT RX Multivit/Folic Acid/Iron 1 tab 10/06/18 10:00 10/12/18 10:25 Vitamins (Sjr) - PO Not Given DAILY CHARLENE Pseudoephedrine/Triprolidine 1 combo 10/05/18 13:04 10/11/18 11:50 Actifed - PO 1 combo TID PRN Administration NASAL CONGESTION Quetiapine Fumarate 400 mg 10/11/18 22:00 10/12/18 21:19 Seroquel - PO 400 mg BID CHARLENE Administration Thiamine HCl 100 mg 10/05/18 22:00 10/12/18 21:22 Vitamin B1 - PO Not Given HS CHARLENE Medication(s) Change(s): No. Current Side Effect: No Lab tests ordered: No Lab tests reviewed: Yes Provider note:: Patient able to complete rehab on 10/13/18. She has met her treatment goals and will continue to address additional issues at [facility] outpatient therapeutic community. Through participation of this program patient has learned the importance of changing her behaviors and the need for more structure in her life. Patient reports feeling well and is motivated to remain abstient from substance abuse. A 30 day supply of lexapro 30mg + gabapentin 600mg HS + seroquel 400mg BID was to patient's pharmacy at [facility] at [address] [place] [address]. Patient is stable for discharge on 10/13/18. Total face to face time:: 35 Mental Status Exam - Mental Status Exam Alert and Oriented to: Time, Place, Person Cognitive Function: Good Patient Appearance: Well Groomed Mood: Hopeful Affect: Appropriate Patient Behavior: Appropriate, Cooperative Speech Pattern: Appropriate Voice Loudness: Normal Thought Process: Intact, Goal Oriented Thought Disorder: Not Present Hallucinations: Denies Suicidal Ideation: Denies Homicidal Ideation: Denies Insight/Judgement: Fair Sleep: Well Appetite: Good Muscle strength/Tone: Normal Gait/Station: Normal
[2018-10-13] MEDS: ESCITALOPRAM OXALATE 10 MG TABLET (FP) PO SCH (09:00)
[2018-10-13] MEDS: GABAPENTIN 300 MG CAPSULE (FP) PO SCH (09:00)
[2018-10-13] MEDS: QUEtiapine FUMARATE 200 MG TABLET PO SCH (09:00)
[2018-10-13] MEDS: levETIRAcetam 500 MG TABLET (FP) PO SCH (09:00)
[2018-10-13] MEDS: PRENATAL VITAMINS W/ FOLIC ACID TABLET (FP) PO SCH (09:01)
[2018-10-13] MEDS: IBUPROFEN 400 MG TABLET (FP) PO PRN (09:01)
[2018-10-13] MEDS: MAG HYDROX/AL HYDROX/SIMETH 30 ML UNIT-DOSE CUP PO PRN (09:01)
--- NOTE | 2018-10-13 09:14 | PN ---
S Progress Note Note: PATIENT FOR D/C TODAY. ONE WEEK OF KEPPRA 500MG BID SENT TO [facility]. PATIENT ADVISED TO FOLLOW UP WITH PCP/NEUROLOGY FOR CONTINUED TREATMENT.
== END 2018-10-13 09:15 | disposition home or self-care (01) | DRG 772 ==
LOC: YASAS 16:48 → Y3W 16:51
PROVIDERS: ADMIT Psychiatry & Neurology Psychiatry; ATTEND Psychiatry & Neurology Psychiatry
PROC: HZ42ZZZ Group Counseling for Substance Abuse Treatment, Cognitive-Behavioral (ICD-10-PCS; principal; 2018-10-05)
DX: F11.20 Opioid dependence, uncomplicated (principal); F10.20 Alcohol dependence, uncomplicated; F14.20 Cocaine dependence, uncomplicated; F17.213 Nicotine dependence, cigarettes, with withdrawal; F19.282 Other psychoactive substance dependence with psychoactive substance-induced sleep disorder; F19.24 Other psychoactive substance dependence with psychoactive substance-induced mood disorder; F31.9 Bipolar disorder, unspecified; D50.9 Iron deficiency anemia, unspecified; J45.22 Mild intermittent asthma with status asthmaticus; G40.909 Epilepsy, unspecified, not intractable, without status epilepticus; L30.9 Dermatitis, unspecified; E66.9 Obesity, unspecified; Z68.41 Body mass index [BMI] 40.0-44.9, adult; Z98.84 Bariatric surgery status; Z88.0 Allergy status to penicillin; Z91.013 Allergy to seafood; Z59.0 Homelessness
CPT/HCPCS: 82962